=== PATIENT | female | born 1940 | race Caucasian/White ===

== ENCOUNTER 2017-08-09 09:42 | Outpatient (CLI) | payer MEDICARE ==
--- NOTE | 2017-08-09 12:08 | ULT ---
HEPATIC DOPPLER: HISTORY: Cirrhosis. COMPARISON: None. TECHNIQUE: Fleming-scale, color-flow, and Doppler imaging with spectral wave-form analysis was performed of the [facility] er. FINDINGS: In the left hepatic lobe, there is anechoic focus, measuring 4.6 x 6.1 x 6.5 cm, compatible with hepa tic cysts. No solid mass in the liver. The liver measures 17 cm. The head of the pancreas is normal in echotexture. The remainder of the pancreas is obscured. The gallbladder is surgically absent. Common bile duct diameter is 0.5 cm. The visualized aorta and IVC are unremarkable. The spleen is enlarged, measuring 13.1 cm. HEPATIC DOPPLER: There is patency and normal directional flow in the main portal vein, the right por mis vein, the left portal vein, the left hepatic vein, the middle hepatic vein, the right hepatic vei n, and the hepatic artery. There is also patency and flow in the splenic vein and artery. IMPRESSION: 1. Unremarkable hepatic Doppler. 2. Mild splenomegaly. 3. Left hepatic lobe cyst. POS: [facility]
== END 2017-08-09 09:43 | disposition home or self-care (01) ==
LOC: ULT 09:42
PROVIDERS: ATTEND Internal Medicine Gastroenterology
DX: K74.60 Unspecified cirrhosis of liver (principal); R16.1 Splenomegaly, not elsewhere classified; K76.89 Other specified diseases of liver
CPT/HCPCS: 76705

== ENCOUNTER 2018-08-22 11:03 | Inpatient (IN) | payer MEDICARE ==
[2018-08-22 11:44] LABS: #Eosinphils 0.4 thou/uL (0.0-0.7); #Lymphocytes 0.8 thou/uL (1.20-3.40); #Monocytes 0.9 thou/uL (0.11-0.59); #Neutrophils 7.4 thou/uL (1.40-6.50); %Basophils 0.4 % (0.0-1.0); %Eosinophils 4.7 % (0.0-10.0); %Lymphocytes 7.9 % (21.0-51.0); %Monocytes 9.3 % (0.0-10.0); %Neutrophils 77.7 % (42.0-75.0); Hemoglobin 9.5 g/dL (12.0-16.0); Mean Corpuscular HGB CONC 32.8 g/dL (32.0-36.0); Mean Corpuscular Hemoglobin 31.2 pg (27.0-31.0); Mean Corpuscular Volume 94.9 fL (78.0-98.0); Mean Platelet Volume 8.8 fL (7.4-10.4); Platelet Count 160 thou/uL (130-400); RBC Distribution Width 15.3 % (11.5-14.5); Red Blood Cell (RBC) Count 3.04 mill/uL (4.20-5.40); White Blood Cell (WBC) Count 9.5 thou/uL (4.8-10.8)
[2018-08-22] MEDS ORDERED: Aspirin Chewable 81 MG TAB ONE (11:57)
--- NOTE | 2018-08-22 11:57 | RAD ---
PORTABLE UPRIGHT FRONTAL CHEST RADIOGRAPH: Date: 08-22-18 Comparison: 06-01-16 History: Intermittent chest pain with cough. FINDINGS: Midline sternotomy wires and mediastinal clips are present. Dual-lead transvenous pacing device prese nt, stable. No pneumothorax, pleural fluid, focal consolidation or alveolar edema. Mild pulmonary vas cular congestion and perihilar interstitial prominence. IMPRESSION: Stable appearance of the chest. No acute findings. POS: [facility]
[2018-08-22 12:04] LABS: ALT (SGPT) 17 U/L (8-55); AST (SGOT) 17 U/L (5-34); Albumin 3.6 g/dL (3.4-4.8); Alkaline Phosphatase 61 U/L (40-150); Anion Gap 12 mmol/L (10-20); BUN (Urea Nitrogen) 16 mg/dL (9.8-20.1); Bilirubin, Total 0.6 mg/dL (0.2-1.2); Calc. Creatinine Clearance 0 mL/min (70-130); Calcium 8.3 mg/dL (7.8-10.44); Carbon Dioxide 33 mmol/L (23-31); Chloride 97 mmol/L (98-107); Estimated GFR-MDRD 54; Globulin 3.5 g/dL (2.4-3.5); Glucose 97 mg/dL (83-110); Potassium 3.5 mmol/L (3.5-5.1); Protein, Total 7.1 g/dL (6.0-8.3); Sodium 138 mmol/L (136-145)
[2018-08-22 12:25] LABS: CKMB 0.7 ng/mL (0-6.6)
[2018-08-22] MEDS ORDERED: Acetaminophen 325 MG TAB PO PRN (13:52)
[2018-08-22] MEDS ORDERED: Ondansetron PF 4 MG/2 ML Vial IVP PRN (13:52)
[2018-08-22] MEDS ORDERED: Ondansetron ODT 4 MG TAB PO PRN (13:52)
--- NOTE | 2018-08-22 14:23 | RAD ---
ABDOMEN 2 VIEWS: Date: 08/22/18 HISTORY: Abdominal pain. FINDINGS/IMPRESSION: There are postop changes of cholecystectomy. No free air or differential fluid levels are seen. The b owel gas pattern is unremarkable. There are degenerative changes in the spine. No suspicious calcific ations are noted. POS: [facility]
--- NOTE | 2018-08-22 16:58 | HP ---
PRIMARY CARE PHYSICIAN: Dr. Bernard Carmona. PRIMARY BUSINESS INTELLIGENCE ETL DEVELOPER: Dr. Orozco. CHIEF COMPLAINT: Left-sided chest pain, epigastric pain radiating to back. HISTORY OF PRESENT ILLNESS: Ms. Fry is a pleasant 77-year-old female with past medical history of hypertension, coronary artery disease status post coronary artery bypass graft, cardiomyopathy, atrial fibrillation, status post pacemaker, who had presented to [facility] with her due to left-sided chest pain that radiates to left upper gastric area and to her back. She states symptoms started about 2 weeks ago, she states prior to her symptoms, she was started on clindamycin for a sinus infection from her primary care physician. She states she had only taken a few doses prior to noticing these symptoms. She states that she had become quite bloated with burning in her abdomen and in her chest that had referred up to her throat. She states that she had stopped taking clindamycin roughly on 08/10/2018, she states that the symptoms, however, remained since this time. She denied any fever or chills, denied any headache or dizziness. She denies any shortness of breath or nausea or vomiting. She denied any weakness or tingling down her extremities. She states that she used to see a type cutter, Dr. Lozano in the past; however, has not seen him since the start of symptoms. She also states that she sees an cheese factory worker, Dr. Campos as an outpatient. During her initial workup in the emergency department, her initial troponin was found to be elevated at 0.30, recheck was found to be within normal limits at 0.014; hemoglobin was found to be low at 9.5, but this seems to be about her baseline, she was found to have a low hemoglobin back in 2015 of 9.0. She had denied any cough, but does report that her pain lasts throughout the day and is worse after meals. Chest x-ray was found to be stable with no acute findings, abdominal x-ray was also unremarkable with a normal bowel gas pattern. It was determined that she would be admitted under observation for further workup of her symptoms. REVIEW OF SYSTEMS: All other systems reviewed and are found to be negative unless mentioned in the HPI. PAST MEDICAL HISTORY: Hypertension, coronary artery disease status post coronary artery bypass graft, cardiomyopathy, atrial fibrillation which is chronic, status post pacemaker placement. PAST SURGICAL HISTORY: Pacemaker placement, appendectomy, coronary artery bypass graft, cholecystectomy, hysterectomy, right wrist surgery, thyroidectomy, left cataract removal. FAMILY HISTORY: Her father had from a myocardial infarction at age 65, otherwise, unremarkable family history. SOCIAL HISTORY: Denies any tobacco, alcohol, or illicit drug use. ALLERGIES: ERYTHROMYCIN AND PENICILLINS. CURRENT HOME MEDICATIONS: 1. Levothyroxine 125 mcg oral once daily. 2. Aspirin 81 mg oral daily. 3. Carvedilol 12.5 mg twice daily. 4. Crestor 20 mg oral daily. 5. Clonidine 0.1 mg oral as needed for blood pressure greater than 180 systolic. 6. Potassium chloride once daily. LABORATORY DATA: WBC 9.5, RBC 3.04, hemoglobin 9.5, and platelets 160. Sodium 138, potassium 3.5, carbon dioxide 33, anion gap 12, BUN 16, creatinine 0.99, estimated GFR 54, alkaline phosphatase 61. Troponin 0.030, then 0.014. DIAGNOSTIC IMAGING: Chest x-ray showed no acute findings. Abdominal x-ray was unremarkable. ASSESSMENT AND PLAN: 1. Chest pain, rule out cardiac etiology, trend troponins. Order a stress test and place consult for Cardiology, her primary veneer clipper helper is Dr. Orozco. We will also interrogate her pacemaker. This also likely could be due to gastritis from the clindamycin that she was started on roughly 2 weeks ago, we will monitor the patient's symptoms closely and start on IV Protonix twice daily, and if her symptoms continue overnight, we will also consider consultation to Gastroenterology for possible upper scope. 2. History of chronic atrial fibrillation with pacemaker in place, as above, we will check the patient's pacemaker and interrogate, continue on the patient's home medications. 3. History of hypertension, as above, continue on her home regimen. 4. Cardiomyopathy. Continue the patient's home regimen and monitor the patient closely. 5. Deep venous thrombosis and gastrointestinal prophylaxis. 6. Code status, full code. DISPOSITION: Pending cardiac workup and clinical findings. Job ID: [id number]
[2018-08-22 18:02] VITALS: BMI 20.5
[2018-08-23] MEDS ORDERED: Labetalol HCl 100 MG/20 ML VIAL SLOW IVP PRN (03:47)
--- NOTE | 2018-08-23 03:51 | PDOC.EVN ---
Event Note - Event Note Event Note: paged by rn pt was found yieling for help after she went to the restroom, possibly pt had some stroke like symptoms will do stroke protocol in am, unable to do mri due to PPM
[2018-08-23 04:49] LABS: #Basophils 0.1 thou/uL (0.0-0.2); #Eosinphils 0.6 thou/uL (0.0-0.7); #Lymphocytes 0.7 thou/uL (1.20-3.40); #Monocytes 0.7 thou/uL (0.11-0.59); #Neutrophils 7.1 thou/uL (1.40-6.50); %Basophils 0.6 % (0.0-1.0); %Eosinophils 6.4 % (0.0-10.0); %Lymphocytes 7.5 % (21.0-51.0); %Monocytes 7.6 % (0.0-10.0); %Neutrophils 77.9 % (42.0-75.0); Hemoglobin 9.8 g/dL (12.0-16.0); Mean Corpuscular HGB CONC 32.8 g/dL (32.0-36.0); Mean Corpuscular Hemoglobin 31.1 pg (27.0-31.0); Mean Corpuscular Volume 94.8 fL (78.0-98.0); Mean Platelet Volume 8.3 fL (7.4-10.4); Platelet Count 163 thou/uL (130-400); RBC Distribution Width 15.2 % (11.5-14.5); Red Blood Cell (RBC) Count 3.14 mill/uL (4.20-5.40); White Blood Cell (WBC) Count 9.1 thou/uL (4.8-10.8)
[2018-08-23 05:10] LABS: Anion Gap 13 mmol/L (10-20); BUN (Urea Nitrogen) 15 mg/dL (9.8-20.1); Calc. Creatinine Clearance 53 mL/min (70-130); Carbon Dioxide 30 mmol/L (23-31); Chloride 98 mmol/L (98-107); Estimated GFR-MDRD 66; Glucose 105 mg/dL (83-110); Potassium 3.1 mmol/L (3.5-5.1); Sodium 138 mmol/L (136-145)
[2018-08-23 05:16] LABS: Troponin I 0.016 ng/mL (< 0.028)
[2018-08-23 05:27] LABS: INR-International Normal Ratio 1.3; Prothrombin Time 16.7 SEC (12.0-14.7)
[2018-08-23] MEDS: Enoxaparin Sodium 40 MG/0.4 ML SYRINGE SC SCH (08:15)
--- NOTE | 2018-08-23 08:18 | CT ---
CTA HEAD WITH AND WITHOUT IV CONTRAST AND 3D REFORMATTED IMAGING: CTA NECK WITH IV CONTRAST AND 3D REFORMATTED IMAGING: INDICATIONS: TIA with sudden onset of weakness and right-sided facial droop with slurred speech. At the time of t he examination, the symptoms had resolved. COMPARISON: Prior noncontrast CT brain dated 04/24/2007 from [facility]. FINDINGS: HEAD: Since 2006, there has been worsening of mild chronic small vessel white matter ischemic change . The septum pellucidum and third ventricle are midline. No definite acute infarct, hemorrhage, or hydrocephalus is present. The mastoid air cells and paranasal sinuses are clear. No hemodynamically significant stenosis, occlusion, or aneurysmal formation is seen involving the collin or intracranial arteries. There is moderate calcification involving the cavernous carotid bilaterall y, that slightly limits evaluation of the luminal caliber at this level, but no definite hemodynamica lly significant stenosis is grossly evident. The MCAs, ACAs, and cisco certified network professional appear patent. The anterior c ommunicating artery and posterior cerebral artery appear patent. The visualized basilar and vertebra l arteries appear patent. No acute abnormal enhancement is demonstrated. The tanana lenses have been replaced. NECK: There are biapical ground glass opacities within both lungs. There is a pacemaker overlying t he left chest wall. There is suggestion of mild cardiomegaly. There is interstitial prominence invo lving the lung apices. There is post surgical change of prior CABG. The ascending aorta, proximal descending thoracic aorta, and aortic arch appear of normal caliber. T he great vessel origins are patent. There is some mild atherosclerotic calcification involving the o rigin of the right vertebral artery, with minimal luminal caliber narrowing. The left vertebral artis ry is widely patent. The common carotid arteries are patent. Both carotid bulbs demonstrate mild at herosclerotic calcification but appear patent. There is some mild atherosclerotic irregularity invol ving the proximal right internal carotid artery, with no hemodynamically significant stenosis. The r emaining cervical segments of the ICAs remain patent. The visualized parotid and submandibular glands appear within normal limits. The thyroid gland appea rs to be surgically absent. No pathologically enlarged lymph nodes are evident. The visualized aerodigestive tract appears within normal limits. A few shotty appearing lymph nodes are seen within the superior mediastinum. One of the largest esthela ures 8 mm, on image 74 of series 4. A few mildly prominent lymph nodes are seen within the mid media stinum. One of the largest is seen within the pretracheal region, measuring 1.2 cm. There is an add itional prevascular lymph node measuring 1 cm. A few mildly prominent hilar lymph nodes are present. There are prominent anterior marginal osteophytes involving the mid to lower cervical spine. No acut e fracture or subluxation is grossly evident. IMPRESSION: 1. No hemodynamically significant stenosis, occlusion, or aneurysmal formation demonstrated. 2. Mild atherosclerotic irregularity involving the proximal right internal carotid artery, as well a s the proximal aspect of the right vertebral artery. 3. Prominent vascular calcification involving the cavernous sinuses of the internal carotid arteries bilaterally, slightly limiting evaluation of the luminal caliber, but no definite hemodynamically si gnificant stenosis is grossly evident. 4. Nonspecific, mildly prominent lymph nodes within the mediastinum. These are slightly more promin ent than on a CT soft tissue neck dated 01/03/2013. This may be reactive in nature. Follow-up CT ex amination in 6 to 8 weeks may be helpful. 5. Bilateral air space opacities seen throughout both lungs may reflect edema or possibly an atypica l infectious process such as pneumonitis. Recommend correlation. POS: [facility]
[2018-08-23] MEDS ORDERED: Aspirin 325 mg Enteric Coated Tablet PO SCH (09:00)
--- NOTE | 2018-08-23 09:27 | EKG ---
Test Reason : Blood Pressure : / mmHG Vent. Rate : 093 BPM Atrial Rate : 093 BPM P-R Int : 000 ms QRS Dur : 086 ms QT Int : 366 ms P-R-T Axes : 000 -20 099 degrees QTc Int : 455 ms Atrial fibrillation Minimal voltage criteria for LVH, may be normal variant Anterior infarct , age undetermined Abnormal ECG Confirmed by DR. Trina WILLINGHAM ([id number]) on 08/23/2018 9:27:05 AM Referred By: ROSY Confirmed By:DR. Trina WILLINGHAM
[2018-08-23] MEDS ORDERED: ISOVUE-370 76%-LOCM 1 ML ONE (10:01)
[2018-08-23] MEDS ORDERED: ADENOSINE 60 MG/20 ML VIAL ONE (11:27)
[2018-08-23] MEDS ORDERED: Nitroglycerin 0.4 MG TAB (25 Tab Bottle) SL PRN (13:04)
[2018-08-23] MEDS ORDERED: cloNIDine 0.1 MG TAB PO PRN (13:04)
--- NOTE | 2018-08-23 13:25 | NM ---
CARDIAC SPECT: HISTORY: A 77-year-old female with chest pain, coronary artery disease, CABG, cardiomyopathy, CHF, atrial fibr illation, and hypertension. TECHNIQUE: A myocardial perfusion scan was performed using the single isotope one day protocol with technetium 9 9m sestamibi, and 10 millicuries was injected intravenously for the rest exam, followed by 33 millicu martita for the stress study. FINDINGS: There is a small fixed defect in the proximal inferolateral wall. No reversible defects are seen. GATED SPECT LVEF: 62%. WALL MOTION EXAM: Normal. IMPRESSION: No evidence of reversible ischemia. POS: [facility]
--- NOTE | 2018-08-23 16:11 | PDOC.PN ---
- Subjective Encounter Start Date: 08/23/18 Encounter Start Time: 16:06 Patient lying in bed with family at bedside. She had stroke like symptoms late last night, CT head did not show any ischemia or infarct. Stress unremarkable, awaiting echo. Neurology following and cardiology services. She denies chest pain, shortness of breath. She remains with slurred speech that is improving. - Objective Resuscitation Status - Order Detail: 08/22/18 13:52 Resuscitation Status Routine Co-Sign Provider: Resuscitation Status: FULL: Full Resuscitation MAR Reviewed: Yes Vital Signs & Weight: Vital Signs (12 hours) Temp Pulse Resp BP Pulse Ox 08/23/18 15:46 97.4 F L 75 18 149/70 H 94 L 08/23/18 12:52 98.5 F 78 16 141/76 H 98 08/23/18 07:45 97.7 F 103 H 16 158/69 H 97 08/23/18 04:24 96 20 145/78 H 94 L Weight Weight 135 lb 2 oz I&O: 08/22/18 08/23/18 08/24/18 06:59 06:59 06:59 Intake Total 445 Balance 445 Result Diagrams: 08/23/18 04:41 08/23/18 04:41 Additional Labs: Accuchecks 08/23/18 03:21 POC Glucose 126 H Radiology Reviewed by me: Yes Phys Exam - Physical Examination Constitutional: NAD HEENT: PERRLA, oral pharynx no lesions Neck: no nodes, full ROM Respiratory: no wheezing, clear to auscultation bilateral Cardiovascular: RRR, no significant murmur Gastrointestinal: soft, non-tender, positive bowel sounds Musculoskeletal: no edema, pulses present Neurological: non-focal, moves all 4 limbs Lymphatic: no nodes Psychiatric: normal affect, A&O x 3 Skin: no rash, cap refill <2 seconds Dx/Plan (1) Slurred speech Code(s): R47.81 - SLURRED SPEECH Status: Acute (2) Anemia Code(s): D64.9 - ANEMIA, UNSPECIFIED Status: Acute (3) Chest pain Code(s): R07.9 - CHEST PAIN, UNSPECIFIED Status: Acute (4) Hypertension Code(s): I10 - ESSENTIAL (PRIMARY) HYPERTENSION Status: Chronic - Plan cont current plan of care, plan discussed w/ family, speech therapy, DVT proph w /lovenox * Continue ASA 325mg increased from her normal home dose of 81mg, she did not tolerated plavix in the past * Cardiology and neurology following * Await echo * Stress test unremarkable. * Speech therapy
[2018-08-23] MEDS ORDERED: Aggrenox 200-25mg CAP PO SCH (18:00)
--- NOTE | 2018-08-23 18:39 | ULT ---
CAROTID DOPPLER ULTRASOUND EVALUATION 08/23/18 HISTORY: TIA. Multiple longitudinal and transverse images of the carotid arteries is obtained using a multihertz li near array transducer. Real time, color flow, and spectral waveform doppler analysis demonstrates min imal areas of diffuse intimal thickening and mild atherosclerotic calcified plaque in the right and l eft common and internal carotid arteries. None of these are associated with increased flow velocities or are critical. They were all minimal resulting in 10-20% areas of focal stenosis. Antegrade flow s een both vertebral arteries. IMPRESSION: Minimal bilateral distal CCA and proximal bilateral ICA calcified and noncalcified plaques. No signif icant high grade stenosis or evidence of increased flow velocities seen. POS: [facility]
[2018-08-23] MEDS: Atorvastatin Calcium 10 MG TAB PO SCH (20:42)
--- NOTE | 2018-08-23 21:06 | CON ---
DATE OF CONSULTATION: 08/23/2018 CONSULTING PHYSICIAN: Hospitalist Services. IMPRESSION: 1. Probable lacunar stroke with dysarthria and very subtle right hand weakness. 2. Hypertension. 3. Aspirin failure. PLAN: 1. Add Aggrenox one a day for 3 days, then b.i.d. 2. Carotid ultrasound. 3. Office followup. HISTORY OF PRESENT ILLNESS: Ms. Fry is a 77-year-old white female with a past history of hypertension and coronary artery disease, as well as hyperlipidemia. She came into the hospital for evaluation of chest pain. She had been treated for sinus infection with clindamycin, this resulted in a lot of secondary bloating. She then started having reflux type acid taste in the back of her mouth. The chest pain that was happening was from sternal to the back, would wax and wane in severity. She was admitted for further evaluation. She got up to go to the bathroom when all of a sudden she felt unstable. She grabbed onto the handrail to hold her balance and called for help. She subsequently was moved back to her bed. She had a CT scan of the brain and CTA done, nothing remarkable was found. Since the attack, she has had some persistent dysarthria. Her also notes that her right hand was a bit sluggish. She denies any history of stroke symptoms in the past. PAST MEDICAL HISTORY: As listed above. ALLERGIES: PENICILLIN, ERYTHROMYCIN. SOCIAL HISTORY: No tobacco or alcohol use. FAMILY HISTORY: Noncontributory. REVIEW OF SYSTEMS: 10-system review of systems is otherwise unremarkable other than the ongoing chest pain and reflux. PHYSICAL EXAMINATION: GENERAL: She is well-nourished elderly lady, in no acute distress. VITAL SIGNS: Stable. She has been afebrile. HEENT: Within normal limits. NECK: Supple. No lymphadenopathy. EXTREMITIES: No cyanosis, clubbing, or edema. NEUROLOGIC: She was alert and cooperative. Her speech was a bit dysarthric, but fluent. Cranial nerve exam showed flattening of the right nasolabial fold. Motor exam showed diminished rapid alternating movements and fix on the right with arm roll testing. Sensation was intact to touch. Gait is intact. No abnormal movements were seen. SUMMARY: This is a 77-year-old woman with some probable lacunar infarction despite aspirin and statin therapy. She has a previous history of gastrointestinal bleed on Plavix. The source of the blood was never identified. Given this, would suggest Aggrenox. Hopefully, she can tolerate it without developing a headache. I would be happy to follow up with her as an outpatient. Job ID: [id number]
--- NOTE | 2018-08-23 21:21 | CON ---
DATE OF CONSULTATION: 08/23/2018 REASON FOR CONSULTATION: Chest pain and acute CVA. PRIMARY REHABILITATION SERVICES MANAGER: Harman Orozco MD HISTORY OF PRESENT ILLNESS: Ms. Fry is a very pleasant 77-year-old white female, who comes to the hospital for chest pain. She was admitted, had a stress test earlier today, and this was negative for ischemia with an EF of about 62%. She has a history of coronary artery disease with CABG in the past. She had a last catheterization in [address] Orozco and her grafts were open. She did have some disease, that was treated medically. During her hospital stay, she developed right facial droop and slurred speech, so diagnosed with an acute CVA. On my evaluation, she continues to have slurred speech, has some difficulty pronouncing some words and has facial droop on the right side. She is quite strong on both upper and lower extremities equally. She has a history of chronic atrial fibrillation. The last time she was seen in the office was in May of 2018, at which point the note states that she was not on any Eliquis secondary to GI bleeding and she confirmed that, she told me she has bled in her stomach before. At that point, she had a discussion with her nurse practitioner about a Watchman device or possibly a Lariat, and she declined at that time. PAST MEDICAL HISTORY: 1. Chronic atrial fibrillation. 2. Coronary artery disease. 3. Status post CABG. 4. Hypertension. 5. Status post pacemaker placement. PAST SURGICAL HISTORY: 1. Pacemaker placement. 2. Appendectomy. 3. Coronary artery bypass grafting. 4. Cholecystectomy. 5. Hysterectomy. 6. Right wrist surgery. 7. Thyroidectomy. 8. Left cataract removal. OUTPATIENT MEDICATIONS: 1. Levothyroxine 125 mcg a day. 2. Aspirin 81 a day. 3. Carvedilol 12.5 mg b.i.d. 4. Crestor 20 mg a day. 5. Clonidine 0.1 p.r.n. 6. Potassium chloride. ALLERGIES: ERYTHROMYCIN AND PENICILLIN. SOCIAL HISTORY: No alcohol, tobacco or drugs. FAMILY HISTORY: AL at age 65 in her father, otherwise noncontributory. REVIEW OF SYSTEMS: A 12-point review of systems is done, is all negative unless stated in the history of present illness. PHYSICAL EXAMINATION: VITAL SIGNS: Temperature 97.4, pulse 82, respiratory rate 18, sat 97% on room air, and blood pressure 158/74. GENERAL: Awake, alert, oriented x3, in no distress. HEENT: Normocephalic and atraumatic. NECK: Supple. LUNGS: Clear. CARDIOVASCULAR: S1 and S2. No S3 or S4. No murmurs. ABDOMEN: Soft. Positive bowel sounds. EXTREMITIES: No edema. NEUROLOGICAL: Strength is conserved 5+ in both upper and lower extremities. She has significant facial droop and slurred speech. LABORATORY DATA: Laboratory work was reviewed. CBC with a white count of 9.1, hemoglobin of 9.8, hematocrit of 29, and platelet count of 163. Coags with an INR of 1.3. Chemistries, potassium is 3.1, otherwise unremarkable. Troponin is negative x3. Albumin of 3.6. DIAGNOSTIC DATA: EKG was reviewed, AFib with RVR with some paced beats. Nuclear stress SPECT showed normal EF. No evidence of reversible ischemia. Carotid Doppler was unremarkable. CT angiography is unremarkable. ASSESSMENT: 1. Chest pain: Ruled out with negative enzymes, unremarkable EKG and normal stress test. 2. Acute cerebrovascular accident. 3. Chronic atrial fibrillation. 4. History of gastrointestinal bleeding on anticoagulation. PLAN: 1. We had a conversation about Lariat device and Watchman device. She states that she may have to talk with her family members; however, after having had the stroke, she will reconsider. She would like to talk to Electrophysiology to talk a little more about these devices. We will put a consult for Dr. Hummel with [facility] as she would be a candidate for a Watchman versus a Lariat device in the future, most likely watchman as she has had a CABG in the past and her pericardium is not intact. 2. We will follow. Job ID: [id number] MTDD
[2018-08-24 06:27] LABS: #Eosinphils 0.5 thou/uL (0.0-0.7); #Monocytes 0.8 thou/uL (0.11-0.59); %Basophils 0.5 % (0.0-1.0); %Eosinophils 5.7 % (0.0-10.0); %Lymphocytes 10.9 % (21.0-51.0); %Monocytes 8.8 % (0.0-10.0); %Neutrophils 74.3 % (42.0-75.0); Hemoglobin 9.5 g/dL (12.0-16.0); Mean Corpuscular HGB CONC 32.7 g/dL (32.0-36.0); Mean Corpuscular Hemoglobin 31.1 pg (27.0-31.0); Mean Corpuscular Volume 95.3 fL (78.0-98.0); Mean Platelet Volume 8.9 fL (7.4-10.4); Platelet Count 199 thou/uL (130-400); RBC Distribution Width 15.2 % (11.5-14.5); Red Blood Cell (RBC) Count 3.05 mill/uL (4.20-5.40); White Blood Cell (WBC) Count 9.4 thou/uL (4.8-10.8)
[2018-08-24 06:45] LABS: Anion Gap 12 mmol/L (10-20); BUN (Urea Nitrogen) 9 mg/dL (9.8-20.1); Calc. Creatinine Clearance 56 mL/min (70-130); Carbon Dioxide 32 mmol/L (23-31); Cardiac Risk 4.9 (Less than 4.5); Chloride 100 mmol/L (98-107); Cholesterol 117 mg/dl (< 200 Desired); Estimated GFR-MDRD 70; Glucose 104 mg/dL (83-110); HDL Cholesterol 24 mg/dL (>60 Neg Risk); LDL Cholesterol, Calculated 75 mg/dL; Potassium 3.2 mmol/L (3.5-5.1); Sodium 141 mmol/L (136-145); Triglycerides 89 mg/dL (Less than 150)
[2018-08-24] MEDS ORDERED: Aspirin 81 mg Enteric Coated Tablet PO SCH (09:00)
[2018-08-24] MEDS ORDERED: Aspirin 325 mg Enteric Coated Tablet PO SCH (09:00)
[2018-08-24] MEDS: Enoxaparin Sodium 40 MG/0.4 ML SYRINGE SC SCH (09:11)
[2018-08-24] MEDS: Carvedilol 3.125 MG TAB PO SCH (09:12)
[2018-08-24] MEDS: Levothyroxine Sodium 125 MCG TAB PO SCH (09:12)
--- NOTE | 2018-08-24 14:25 | PDOC.PN ---
- Subjective Encounter Start Date: 08/24/18 Encounter Start Time: 14:23 Subjective: Patient lying in bed with at bedside. She reports feeling better -: Dr Hummel determined she would be good candidate for watchman, started -: Eliquis, No chest pain, sob,abdominal pain. - Objective Resuscitation Status - Order Detail: 08/22/18 13:52 Resuscitation Status Routine Co-Sign Provider: Resuscitation Status: FULL: Full Resuscitation MAR Reviewed: Yes Vital Signs & Weight: Vital Signs (12 hours) Temp Pulse Resp BP Pulse Ox 08/24/18 11:35 86 18 144/67 H 96 08/24/18 07:35 97.6 F 82 18 175/77 H 97 08/24/18 04:17 98.4 F 82 14 121/69 97 Weight Weight 135 lb 14.4 oz I&O: 08/23/18 08/24/18 08/25/18 06:59 06:59 06:59 Intake Total 445 1050 360 Output Total 1450 Balance 445 -400 360 Result Diagrams: 08/24/18 05:52 08/24/18 05:53 Radiology Reviewed by me: Yes Phys Exam - Physical Examination Constitutional: NAD HEENT: PERRLA, 2+ tonsils Neck: no nodes, full ROM Respiratory: no wheezing, clear to auscultation bilateral Cardiovascular: no significant murmur, no rub S1S2 Gastrointestinal: soft, positive bowel sounds Musculoskeletal: no edema, pulses present Neurological: moves all 4 limbs Slurred speech improved Lymphatic: no nodes Psychiatric: normal affect, A&O x 3 Skin: no rash, cap refill <2 seconds Dx/Plan (1) Slurred speech Code(s): R47.81 - SLURRED SPEECH Status: Acute (2) Anemia Code(s): D64.9 - ANEMIA, UNSPECIFIED Status: Acute (3) Chest pain Code(s): R07.9 - CHEST PAIN, UNSPECIFIED Status: Acute (4) Hypertension Code(s): I10 - ESSENTIAL (PRIMARY) HYPERTENSION Status: Chronic (5) CVA (cerebral vascular accident) Code(s): I63.9 - CEREBRAL INFARCTION, UNSPECIFIED Status: Acute - Plan cont current plan of care, plan discussed w/ family Continue Mary Beth, she will follow up with Dr Orozco and Dr Hummel along -: with Dr Maraist as outpatient. Since patient with hx of not tolerating -: Plavix, will hold discharge give dose of Eliquis and d/c tomorrow -: if no bleeding noted. * .
[2018-08-24] MEDS ORDERED: Potassium Chloride 20 MEQ TAB PO SCH (15:00)
--- NOTE | 2018-08-24 15:31 | CON ---
DATE OF CONSULTATION: 08/24/2018 REFERRING PHYSICIANS: 1. Shawn Vargas MD. 2. Harman Orozco MD. HISTORY OF PRESENT ILLNESS: I am seeing Mrs. 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 Her problems are. 1. Persistent atrial fibrillation. a.. Chronic persistent atrial fibrillation noted on pace interrogation. b. Current admission with episodes of CVA/TIA. 2. Valvular heart disease. a. 2D echo from 08/23/2018 reveals LVEF of 50% to 55%, mild MR, moderate to severe TR, pulmonary pressures at 60 mmHg. 3. History of anemia and GI bleed with current hemoglobin of 9.5. a. No history of bleeding source found. 4. Risk factors including hypertension. 5. History of bradycardia . 6. History of coronary artery disease with heart catheterization in 2016 with recent bypass graft noted, treated medically. SUBJECTIVE: Ms. Fry presented with slurred speech and diagnosed to have an acute CVA/TIA. She still has some slurring and some facial droop on the right side, though improving. She does not have any stroke-like symptoms. No neurological deficits. No fever, chills, cough. No PND or orthopnea. She denies angina-like discomfort. No new bleeding issues are noted. Rest of 12-point system otherwise unremarkable. PAST HISTORY: As above. Pt has been seen by Dr Umaña in the past,but at that point she declined Watchman procedure. SOCIAL HISTORY: The patient denies smoking, EtOH, or drug abuse. FAMILY HISTORY: Not contributory. OBJECTIVE DATA: VITAL SIGNS: Blood pressure 144/67, heart rate 86, respiratory rate 18, temperature 96.7 degrees Fahrenheit. GENERAL: This is an alert and oriented woman, in no apparent distress. NECK: Supple. Jugular veins not distended. CHEST: Coarse with crackles. HEART: Sounds are irregularly irregular. S1 and S2 are variable. No murmur or gallop. Left subclavian pacemaker incision site is well healed. ABDOMEN: Benign. Bowel sounds positive. No masses or hepatomegaly is felt. EXTREMITIES: Lower extremities without edema, clubbing, mild swelling. No cyanosis. NEUROLOGIC: The patient is nonfocal at this point with minimal slurring of speech only. SKIN: Without rash. DATABASE: EKG is reviewed with atrial fibrillation, narrow QRS. Interrogation of pacemaker reveals persistent atrial fibrillation and intermittent ventricular pacing at times. Adequate pacemaker fuinction and battery status noted. LABORATORY DATA: White cells 9.4, hemoglobin 9.5 stable, platelet count is 199. The INR is 1.3 on the 5th. Sodium 141, potassium 3.2, BUN and creatinine is 9 and 0.79. The troponin was 0.014, 0.025. 0.016. The 2D echo as noted above. Pacemaker interrogation is also reviewed. Stress test from 08/23/2018 shows no evidence of reversible ischemia. EF 62%. ASSESSMENT AND PLAN: Ms. Fry is a pleasant 77-year-old woman with prior history of persistent atrial fibrillation, which is fairly asymptomatic for her. On the other hand, she did have history of significant anemia, requiring transfusions in the past, which eventually resolved and stopping oral anticoagulation. Despite that, she did not have a stroke up until now. Unfortunately, this episode seems to be self-limiting and symptoms are improving. We discussed pros and cons about considering receiving anticoagulation, possibly with the hope of Watchman procedure subsequently. I have advocated somewhat lower dose of the Eliquis and she has had borderline weight at 135 with normal renal function currently. Hopefully with this, she will have significant bleeding episodes, and will be able to go through our Watchman procedure, which would be indicated. The pros and cons of this approach were discussed. We also discussed remote options of LARIAT procedure, though which is a much more involved procedure with discomfort for the patient as well. She understands and wishes to proceed. If it is okay with Neurology, I would like to start Eliquis and will hold off on Aggrenox and aspirin instead. Hence, CT shows no significant ischemic stroke, we will initiate OAC if Neurology agrees. Job ID: [id number] [facility]
--- NOTE | 2018-08-24 17:36 | PDOC.CTH ---
Cardiology Progress Note - Subjective No new issues. No new complaints. - Objective Vital Signs Temp Pulse Resp BP Pulse Ox 08/24/18 15:30 98.3 F 82 12 176/80 H 98 08/24/18 11:35 86 18 144/67 H 96 08/24/18 07:35 97.6 F 82 18 175/77 H 97 Weight 135 lb 14.4 oz 08/23/18 08/24/18 08/25/18 06:59 06:59 06:59 Intake Total 445 1050 600 Output Total 1450 Balance 445 -400 600 - Physical Examination General/Neuro: alert & oriented x3, NAD Neck: no JVD present Lungs: unlabored respirations Heart: other: (Irreg irreg) Abdomen: NT/ND Extremities: other: (no edema) - Telemetry Telemetry Rhythm: Afib HR 80's. - Labs Result Diagrams: 08/24/18 05:52 08/24/18 05:53 Troponin/CKMB CK-MB (CK-2) 0.7 ng/mL (0-6.6) 08/22/18 11:29 Troponin I 0.016 ng/mL (< 0.028) 08/23/18 04:41 - Assessment/Plan 1. Acute CVA 2. Normal stress test. 3. Chronic afib 4. Hx of GI bleeding. 5. S/P CABG in the past. PLAN: - She would only be a candidate for a Watchman as she has had a CABG so Lariat unlikely. - Agree with re challenge of lower dose Eliquis and set up for watchman in the future.
[2018-08-24] MEDS: Apixaban 2.5 MG TAB PO SCH (22:14)
[2018-08-24] MEDS: Atorvastatin Calcium 10 MG TAB PO SCH (22:14)
[2018-08-24] MEDS ORDERED: Melatonin 3 MG TAB PO PRN (22:32)
[2018-08-25 05:49] LABS: #Eosinphils 0.7 thou/uL (0.0-0.7); #Lymphocytes 1.1 thou/uL (1.20-3.40); #Monocytes 0.9 thou/uL (0.11-0.59); %Basophils 0.2 % (0.0-1.0); %Lymphocytes 10.9 % (21.0-51.0); %Monocytes 9.6 % (0.0-10.0); %Neutrophils 72.3 % (42.0-75.0); Mean Corpuscular HGB CONC 33.2 g/dL (32.0-36.0); Mean Corpuscular Hemoglobin 31.5 pg (27.0-31.0); Mean Corpuscular Volume 94.9 fL (78.0-98.0); Mean Platelet Volume 8.5 fL (7.4-10.4); Platelet Count 190 thou/uL (130-400); RBC Distribution Width 15.1 % (11.5-14.5); Red Blood Cell (RBC) Count 2.86 mill/uL (4.20-5.40); White Blood Cell (WBC) Count 9.7 thou/uL (4.8-10.8)
[2018-08-25 07:36] VITALS: BP 145/63; TEMP 97.5
[2018-08-25] MEDS: Levothyroxine Sodium 125 MCG TAB PO SCH (08:54)
[2018-08-25] MEDS: Carvedilol 3.125 MG TAB PO SCH (08:58)
[2018-08-25] MEDS: Apixaban 2.5 MG TAB PO SCH (08:58)
--- NOTE | 2018-08-26 04:08 | PRG ---
DATE OF SERVICE: 08/25/2018 ELECTROPHYSIOLOGY FOLLOWUP NOTE SUBJECTIVE: Mrs. Fry seems to be doing well, tolerated resumed Eliquis. OBJECTIVE DATA: VITAL SIGNS: Blood pressure is 145/63, heart rate 70, respiratory rate 16, and temperature 97.5 degrees Fahrenheit. PHYSICAL EXAMINATION: GENERAL: Alert and oriented woman, in no apparent distress. NECK: Supple. Jugular veins not distended. CHEST: Coarse with crackles. HEART: Sounds are irregularly irregular. S1 and S2 are variable. No murmur or gallop. PMI is nonpalpable. ABDOMEN: Benign. Bowel sounds positive. EXTREMITIES: Lower extremities without edema, clubbing, or cyanosis. DATABASE: The telemetry strips reviewed revealing continued atrial fibrillation. LABORATORY DATA: White cell count 9.7, hemoglobin 9, platelet count is 190. Sodium 141, potassium 3.2, BUN 9, creatinine 0.79. ASSESSMENT AND PLAN: Mrs. Fry is a pleasant 77-year-old woman who has history of persistent atrial fibrillation. She had also some bradyarrhythmia and the pacemaker is in place. She was admitted with acute transient ischemic attack. Most symptoms resolved. CT head was nonspecific for stroke. We discussed the potential options for Watchman procedure for her. That would require anticoagulation. She had remote history of GI bleed, but no specific source was found, and no recurrence since then. At this point, we resumed Eliquis and I advised her to continue home monitoring. We will see her back in the near future for arranging the Watchman device placement. Job ID: [id number]
[2018-08-26] MEDS ORDERED: Aggrenox 200-25mg CAP PO SCH (09:00)
== END 2018-08-25 11:07 | disposition home or self-care (01) | DRG 65 ==
LOC: ERS 11:03 → ERHOLD 12:56 → 2SW 17:56 → OBSVTOIN 08-24 14:22 → 2SE 08-24 20:14
PROVIDERS: ADMIT Family Medicine; ATTEND Family Medicine
DX: I63.9 Cerebral infarction, unspecified (principal); I42.9 Cardiomyopathy, unspecified; I10 Essential (primary) hypertension; I25.10 Atherosclerotic heart disease of native coronary artery without angina pectoris; I48.2 Chronic atrial fibrillation; R47.81 Slurred speech; D64.9 Anemia, unspecified; R07.9 Chest pain, unspecified; R29.810 Facial weakness; Z87.19 Personal history of other diseases of the digestive system; Z95.1 Presence of aortocoronary bypass graft; Z90.49 Acquired absence of other specified parts of digestive tract; Z90.710 Acquired absence of both cervix and uterus; Z98.42 Cataract extraction status, left eye; Z90.89 Acquired absence of other organs; Z98.890 Other specified postprocedural states; Z79.82 Long term (current) use of aspirin; Z79.899 Other long term (current) drug therapy; Z88.0 Allergy status to penicillin; Z88.1 Allergy status to other antibiotic agents
CPT/HCPCS: 36415; 36416; 70496; 70498; 71045; 74019; 78452; 80048; 80053; 80061; 82553; 83735; 84484; 85025; 85610; 85730; 93005; 93010; 93017; 93306; 93880; A9500; J0153; J1650; J2405; Q9966

== ENCOUNTER 2019-01-18 11:33 | Outpatient (CLI) | payer MEDICARE ==
[2019-01-18 11:57] LABS: Mean Corpuscular HGB CONC 32.8 g/dL (32.0-36.0); Mean Corpuscular Volume 88.5 fL (78.0-98.0); Mean Platelet Volume 9.7 fL (7.4-10.4); Platelet Count 149 thou/uL (130-400); RBC Distribution Width 15.7 % (11.5-14.5); Red Blood Cell (RBC) Count 3.79 mill/uL (4.20-5.40)
[2019-01-18 12:13] LABS: INR-International Normal Ratio 1.4; PTT 31.3 SEC (22.9-36.1); Prothrombin Time 16.9 SEC (12.0-14.7)
[2019-01-18 12:14] LABS: Anion Gap 13 mmol/L (10-20); BUN (Urea Nitrogen) 23 mg/dL (9.8-20.1); Calc. Creatinine Clearance 0 mL/min (70-130); Calcium 8.2 mg/dL (7.8-10.44); Carbon Dioxide 29 mmol/L (23-31); Chloride 101 mmol/L (98-107); Estimated GFR-MDRD 54; Glucose 95 mg/dL (83-110); Potassium 3.9 mmol/L (3.5-5.1); Sodium 139 mmol/L (136-145)
== END 2019-01-18 11:34 | disposition home or self-care (01) ==
LOC: LABBT 11:33
PROVIDERS: ATTEND Internal Medicine Cardiovascular Disease
DX: Z01.818 Encounter for other preprocedural examination (principal); I48.91 Unspecified atrial fibrillation; Z86.73 Personal history of transient ischemic attack (TIA), and cerebral infarction without residual deficits
CPT/HCPCS: 80048; 85027; 85610; 85730; 93005; 93010

== ENCOUNTER → 2019-01-20 | Day surgery (SDC) | payer MEDICARE ==
[2019-01-18 11:49] VITALS: BMI 23.3
[~2019-01-20] MED LIST: PROPOFOL 0 ML ONE; PROPOFOL 20 ML ONE; PROPOFOL 200 MG/20 ML VIAL ONE
--- NOTE | 2019-01-20 12:49 | DIS ---
DATE OF ADMISSION: 01/20/2019 DATE OF DISCHARGE: 01/20/2019 ADMISSION DIAGNOSES: She was seen in the outpatient facility today to undergo a transesophageal echocardiogram to rule out evidence of isidro-device leak for Watchman device, which had been implanted about 6 to 8 weeks ago. Her other diagnoses included hypertension, diabetes, hypercholesterolemia, pacemaker insertion, history of gastrointestinal bleeding, and also history of cerebrovascular accident. DISCHARGE DIAGNOSES: She was seen in the outpatient facility today to undergo a transesophageal echocardiogram to rule out evidence of isidro-device leak for Watchman device, which had been implanted about 6 to 8 weeks ago. Her other diagnoses included hypertension, diabetes, hypercholesterolemia, pacemaker insertion, history of gastrointestinal bleeding, and also history of cerebrovascular accident. PROCEDURE IN HOSPITAL: Included transesophageal echocardiogram. HOSPITAL COURSE: This is an 78-year-old female, who has had a history of atrial fibrillation, who developed a GI bleed, also had a CVA previously, had undergone a Watchman device implant, and she is being evaluated today to determine whether or not she can come off the oral anticoagulation due to her problems with Coumadin. She has had spontaneous bleeding with Coumadin. Also, to consider whether or not we can even stop her anticoagulation due to her history of CVA. I am uncertain that at the time of CVA whether she was actually in atrial fibrillation at that time or not. She was taken to the recovery area, where she underwent the procedure today. There were no difficulties or complications encountered, and there was no evidence of any isidro-device leak, and the left ventricular systolic function was normal. She did have severe tricuspid valve regurgitation and moderate mitral valve regurgitation. DISCHARGE MEDICATIONS: Include: 1. Eliquis 2.5 mg b.i.d. She will discuss this with industrial welder, and they may stop this medication. 2. Calcium with vitamin D. 3. Coreg 12.5 mg twice a day. 4. Clonidine 0.1 mg daily. 5. CoQ10. 6. Levothyroxine. 7. Multivitamins. 8. Nitroglycerin p.r.n. 9. Pravastatin 20 mg q.p.m. 10. Ranitidine. 11. Torsemide. FOLLOWUP: Her followup will be with Dr. Orozco in the next 1 to 2 months. She will continue her routine followups with industrial welder. They will make the final decision as to whether or not she can stop her anticoagulation. She has had a CVA in the past, so that if she has a significant GI blood loss, then obviously, the hope is that Watchman will serve her well, which may be able to stop her oral anticoagulation. There were no complications or difficulties during this procedure, and she remained stable. She will be discharged to home in the next 2 to 3 hours. Job ID: [id number]
--- NOTE | 2019-01-20 18:41 | ECHO ---
DATE OF PROCEDURE: 01/20/19 INDICATION FOR PROCEDURE: This is an 78-year-old female who has undergone a Watchman device due to chronic atrial fibrillation. She has history of CVA, history of coronary artery disease, bypass surgery, history of pacemaker ins ertion, history of GI bleeding. She underwent a Watchman device in hopes that she could possibly get off the oral anticoagulation. She has had this for six to eight weeks now. She was advised to undergo a transesophageal echocardiogram for evaluation of the device and to rule out any peridevice leak. She was taken to the recovery area where she underwent short acting propofol without any difficulties . The transesophageal probe was passed down the distal esophagus. IMPRESSION: 1. No evidence for leakage around the Watchman device in the left atrial appendage. It appears t o be well seated. 2. Normal left ventricular systolic function. 3. Severe tricuspid valve regurgitation. 4. Moderate mitral valve regurgitation. There were no difficulties or complications encountered. The patient tolerated the procedure well.
== END ==
LOC: CCL 07:01
PROVIDERS: ATTEND Internal Medicine Cardiovascular Disease
PROC: B246ZZ4 Ultrasonography of Right and Left Heart, Transesophageal (ICD-10-PCS; principal; 2019-01-20)
DX: Z45.09 Encounter for adjustment and management of other cardiac device (principal); I48.2 Chronic atrial fibrillation; I08.1 Rheumatic disorders of both mitral and tricuspid valves; E87.6 Hypokalemia; D50.0 Iron deficiency anemia secondary to blood loss (chronic); R00.1 Bradycardia, unspecified; I25.10 Atherosclerotic heart disease of native coronary artery without angina pectoris; I10 Essential (primary) hypertension; E11.9 Type 2 diabetes mellitus without complications; E78.00 Pure hypercholesterolemia, unspecified; Z86.73 Personal history of transient ischemic attack (TIA), and cerebral infarction without residual deficits; Z87.19 Personal history of other diseases of the digestive system; Z88.0 Allergy status to penicillin; Z88.1 Allergy status to other antibiotic agents; Z79.01 Long term (current) use of anticoagulants; Z79.899 Other long term (current) drug therapy
CPT/HCPCS: 93312; J2704

== ENCOUNTER 2019-04-24 06:45 | Day surgery (SDC) | payer MEDICARE ==
[2019-04-21 16:07] VITALS: BMI 23.8
[2019-04-24 07:57] LABS: #Eosinphils 0.3 thou/uL (0.0-0.7); #Lymphocytes 0.7 thou/uL (1.20-3.40); #Monocytes 0.7 thou/uL (0.11-0.59); #Neutrophils 6.3 thou/uL (1.40-6.50); %Basophils 0.6 % (0.0-1.0); %Eosinophils 3.6 % (0.0-10.0); %Lymphocytes 9.1 % (21.0-51.0); %Monocytes 8.8 % (0.0-10.0); %Neutrophils 77.9 % (42.0-75.0); Hemoglobin 10.6 g/dL (12.0-16.0); Mean Corpuscular HGB CONC 33.3 g/dL (32.0-36.0); Mean Corpuscular Hemoglobin 30.7 pg (27.0-31.0); Mean Corpuscular Volume 92.3 fL (78.0-98.0); Mean Platelet Volume 9.2 fL (7.4-10.4); Platelet Count 155 thou/uL (130-400); RBC Distribution Width 16.1 % (11.5-14.5); Red Blood Cell (RBC) Count 3.44 mill/uL (4.20-5.40); White Blood Cell (WBC) Count 8.1 thou/uL (4.8-10.8)
[2019-04-24 08:11] LABS: INR-International Normal Ratio 1.8; PTT 37.2 SEC (22.9-36.1); Prothrombin Time 20.4 SEC (12.0-14.7)
[2019-04-24 08:15] LABS: Anion Gap 12 mmol/L (10-20); BUN (Urea Nitrogen) 21 mg/dL (9.8-20.1); Calc. Creatinine Clearance 45 mL/min (70-130); Calcium 8.1 mg/dL (7.8-10.44); Carbon Dioxide 29 mmol/L (23-31); Chloride 105 mmol/L (98-107); Estimated GFR-MDRD 54; Glucose 111 mg/dL (83-110); Potassium 3.4 mmol/L (3.5-5.1); Sodium 143 mmol/L (136-145)
[2019-04-24] MEDS ORDERED: PROPOFOL 20 ML ONE (08:55)
--- NOTE | 2019-04-24 12:23 | OP ---
DATE OF PROCEDURE: 04/24/2019 PROCEDURE PERFORMED: Transesophageal echocardiogram. INDICATION: An 78-year-old woman with paroxysmal atrial fibrillation. DESCRIPTION OF PROCEDURE: The patient was taken to the PACU. The patient was sedated by Anesthesiology. Transesophageal probe was placed to the distal esophagus and stomach. Echocardiograms were obtained. The transesophageal probe was removed. FINDINGS: 1. Normal left ventricular systolic function. 2. Moderate mitral regurgitation. 3. Severe tricuspid regurgitation. 4. Watchman device was well positioned in the left atrial appendage. There was no apparent leak noted. 5. Pacemaker wire in the right ventricle. 6. Atherosclerotic debris in the descending aorta. IMPRESSION: Watchman device is well positioned in the left atrial appendage with no evidence of significant leak. Job ID: [id number]
[2019-04-24] MEDS ORDERED: PROPOFOL 200 MG/20 ML VIAL ONE (12:38)
== END 2019-04-24 10:33 | disposition home or self-care (01) ==
LOC: CCL 06:45
PROVIDERS: ATTEND Internal Medicine Cardiovascular Disease
PROC: B24BZZ4 Ultrasonography of Heart with Aorta, Transesophageal (ICD-10-PCS; principal; 2019-04-24)
DX: I48.0 Paroxysmal atrial fibrillation (principal); I08.1 Rheumatic disorders of both mitral and tricuspid valves; Z79.01 Long term (current) use of anticoagulants; Z88.0 Allergy status to penicillin; Z88.1 Allergy status to other antibiotic agents
CPT/HCPCS: 36415; 80048; 85025; 85610; 85730; 93005; 93010; 93312; J2704

== ENCOUNTER 2019-05-04 10:12 | Outpatient (CLI) | payer MEDICARE ==
--- NOTE | 2019-05-04 12:11 | CT ---
CLINICAL HISTORY: Urinary tract infection and hepatitis. Liver cyst.. TECHNIQUE: Multiple contiguous axial images were obtained and a CT of the abdomen and pelvis without and with IV contrast. Postcontrast images were obtained in the arterial, portal venous, and delayed phases. Coronal and sagittal reformats were performed. COMPARISON: None. FINDINGS: Liver: Size: Normal. Contour: Smooth. Mass: Stable cysts measuring up to 5.2 cm in size. Gallbladder and biliary system: Removed. Spleen: Normal. Pancreas: Normal. Kidneys: Stable bilateral subcentimeter hypodensities likely represent cysts. No renal calcifications or hydronephrosis. Ureters: No filling defects or enlargement Bladder: Unremarkable. Adrenal glands: Normal. GI tract: Normal. Reproductive organs: Status post hysterectomy Peritoneum/retroperitoneum: Normal. No ascites. No adenopathy. Atherosclerotic calcifications. Body wall and musculoskeletal: Degenerative changes in the spine. Visualized lower thorax: Normal. No pulmonary parenchymal mass or pleural effusion. IMPRESSION: 1. Stable hepatic cysts 2. Likely small bilateral renal cysts.
== END 2019-05-04 10:13 | disposition home or self-care (01) ==
LOC: BICCT 10:12
PROVIDERS: ATTEND Family Medicine
DX: N39.0 Urinary tract infection, site not specified (principal); K76.89 Other specified diseases of liver
CPT/HCPCS: 74178

== ENCOUNTER 2020-06-05 09:02 | Outpatient (CLI) | payer MEDICARE ==
--- NOTE | 2020-06-05 09:49 | ULT ---
Exam: Hepatic Doppler COMPARISON: 03/30/2018 HISTORY: Cirrhosis. TECHNIQUE: Grayscale, color flow, Doppler imaging and spectral waveform analysis of the liver is perf ormed FINDINGS: The head and proximal pancreas have a normal echotexture Normal hepatic parenchymal echotexture. No hepatic masses or intrahepatic biliary dilatation. There i s a 6.1 x 4.1 x 6.1 cm anechoic focus in the left hepatic lobe, compatible with a hepatic cyst. Gallbladder is surgically absent. Visualized IVC has a normal caliber Common bile duct diameter is 0.6 cm Spleen has a normal echotexture, measuring 13.9 cm Hepatic Doppler: There is patency and appropriate directional flow in the hepatic artery, left portal vein, main portal vein, right portal vein, left hepatic vein, middle hepatic vein and right hepatic vein. There is patency and appropriate directional flow in the splenic artery and vein. IMPRESSION: 1. Normal hepatic Doppler 2. Hepatic cyst. 3. Splenomegaly
== END 2020-06-05 09:03 | disposition home or self-care (01) ==
LOC: BICULT 09:02
PROVIDERS: ATTEND Physician Assistant Medical
DX: K74.69 Other cirrhosis of liver (principal); D50.9 Iron deficiency anemia, unspecified; K76.89 Other specified diseases of liver; R16.1 Splenomegaly, not elsewhere classified
CPT/HCPCS: 76705

== ENCOUNTER 2021-07-25 08:54 | Outpatient (CLI) | payer MEDICARE ==
[2021-07-25 11:35] LABS: #Eosinphils 0.3 10x3/uL (0.0-0.5); #Monocytes 0.7 10x3/uL (0.0-1.1); #Neutrophils 7.6 10x3/uL (1.5-8.4); %Basophils 0.2 % (0.0-2.0); %Eosinophils 2.7 % (0.0-6.0); %Lymphocytes 6.1 % (18.0-47.0); %Monocytes 8.1 % (0.0-10.0); %Neutrophils 82.5 % (40.0-75.0); Hemoglobin 8.4 g/dL (12.0-15.5); Mean Corpuscular Hemoglobin 30.1 pg (27.0-33.0); Mean Corpuscular Volume 100.4 fl (81.6-98.3); Mean Platelet Volume 12.4 fl (7.4-10.4); Platelet Count 149 10x3/uL (150-450); RBC Distribution Width 14.8 % (11.5-14.5); Red Blood Cell (RBC) Count 2.79 10x6/uL (3.90-5.03); White Blood Cell (WBC) Count 9.2 10x3/uL (3.5-10.5)
[2021-07-25 11:58] LABS: Anion Gap 13 mmol/L (10-20); BUN (Urea Nitrogen) 38 mg/dL (9.8-20.1); Calc. Creatinine Clearance 0 mL/min (70-130); Calcium 8.1 mg/dL (7.8-10.44); Carbon Dioxide 28 mmol/L (23-31); Chloride 106 mmol/L (98-107); Glucose 81 mg/dL (83-110); Potassium 4.4 mmol/L (3.5-5.1); Sodium 143 mmol/L (136-145)
[2021-07-25 20:42] LABS: SARS-CoV-2 PCR by NAA Not Detected (NotDetected)
== END 2021-07-25 08:55 | disposition home or self-care (01) ==
LOC: LABBT 08:54
PROVIDERS: ATTEND Internal Medicine Cardiovascular Disease
DX: Z01.812 Encounter for preprocedural laboratory examination (principal); Z20.822 Contact with and (suspected) exposure to COVID-19
CPT/HCPCS: 80048; 85025; U0003; U0005

== ENCOUNTER 2021-07-30 05:56 | Inpatient (IN) | payer MEDICARE ==
[2021-07-24 10:36] VITALS: BMI 21.6
[2021-07-30] MEDS ORDERED: Fentanyl 100 MCG/2 ML VIAL ONE (07:20)
[2021-07-30] MEDS ORDERED: Midazolam HCl 2 mg/2 ml Vial ONE ×2 (07:20→16:00)
[2021-07-30] MEDS ORDERED: Heparin 10,000 UNITS/ 10 ML VIAL ONE ×2 (08:10→09:31)
[2021-07-30] MEDS ORDERED: Clopidogrel Bisulfate 300 MG TAB ONE (09:42)
[2021-07-30] MEDS ORDERED: Iopamidol 370 76% 100 ML VIAL ONE (10:50)
[2021-07-30] MEDS ORDERED: Digoxin 0.5 MG/2 ML AMP ONE (16:02)
[2021-07-30] MEDS ORDERED: Furosemide 20 MG/2 ML VIAL ONE ×2 (16:02→16:23)
[2021-07-30] MEDS ORDERED: Albuterol Sulfate 1.25 MG/3 ML NEB ONE (16:19)
[2021-07-30] MEDS ORDERED: Nitroglycerin 2% Ointment 1 INCH/1 GM Packet ONE (16:23)
[2021-07-30] MEDS ORDERED: Nitroglycerin 0.4 MG TAB (25 Tab Bottle) SL PRN (18:50)
[2021-07-30] MEDS ORDERED: hydrOXYzine 10 MG TAB PO PRN (18:52)
[2021-07-30] MEDS ORDERED: cloNIDine 0.1 MG TAB PO PRN (18:55)
[2021-07-30] MEDS ORDERED: Furosemide 20 MG/2 ML VIAL SLOW IVP SCH (20:15)
[2021-07-30] MEDS ORDERED: Potassium Chloride 20 MEQ TAB PO SCH (20:15)
[2021-07-30] MEDS ORDERED: Digoxin 0.5 MG/2 ML AMP SLOW IVP SCH (20:15)
[2021-07-30] MEDS ORDERED: ALPRAZolam 0.25 MG TAB PO PRN (20:16)
[2021-07-30] MEDS ORDERED: Simvastatin 10 MG TAB PO SCH (21:00)
[2021-07-31] MEDS ORDERED: Levothyroxine Sodium 125 MCG TAB PO SCH (06:00)
[2021-07-31 08:34] VITALS: BP 128/60; TEMP 98
[2021-07-31] MEDS ORDERED: Clopidogrel Bisulfate 75 MG TAB PO SCH (09:00)
[2021-07-31] MEDS ORDERED: Carvedilol 6.25 MG TAB PO SCH (09:00)
[2021-07-31] MEDS ORDERED: Potassium Chloride 20 MEQ TAB PO SCH (09:00)
[2021-07-31] MEDS ORDERED: Aspirin 81 mg Enteric Coated Tablet PO SCH (09:00)
[2021-07-31] MEDS ORDERED: Multivit, Therapeutic 1 TAB PO SCH (09:00)
[2021-07-31] MEDS ORDERED: Torsemide 20 MG TAB PO SCH (09:00)
[2021-07-31] MEDS ORDERED: Empagliflozin 10 MG TAB PO SCH (09:00)
[2021-08-01] MEDS ORDERED: Digoxin 0.125 MG TAB PO SCH (09:00)
== END 2021-07-31 12:16 | disposition home or self-care (01) | DRG 232 ==
LOC: CCL 05:56 → NEURO 19:19
PROVIDERS: ADMIT Internal Medicine Cardiovascular Disease; ATTEND Internal Medicine Cardiovascular Disease
PROC: 02100Z9 Bypass Coronary Artery, One Artery from Left Internal Mammary, Open Approach (ICD-10-PCS; principal; 2021-07-30)
PROC: 027034Z Dilation of Coronary Artery, One Artery with Drug-eluting Intraluminal Device, Percutaneous Approach (ICD-10-PCS; 2021-07-30)
PROC: 021009W Bypass Coronary Artery, One Artery from Aorta with Autologous Venous Tissue, Open Approach (ICD-10-PCS; 2021-07-30)
PROC: 5A1221Z Performance of Cardiac Output, Continuous (ICD-10-PCS; 2021-07-30)
DX: I25.10 Atherosclerotic heart disease of native coronary artery without angina pectoris (principal); I50.32 Chronic diastolic (congestive) heart failure; Z20.822 Contact with and (suspected) exposure to COVID-19; E78.00 Pure hypercholesterolemia, unspecified; I48.0 Paroxysmal atrial fibrillation; I49.5 Sick sinus syndrome; D50.9 Iron deficiency anemia, unspecified; Z95.0 Presence of cardiac pacemaker; I69.30 Unspecified sequelae of cerebral infarction; Z79.84 Long term (current) use of oral hypoglycemic drugs; Z79.82 Long term (current) use of aspirin; Z79.890 Hormone replacement therapy; Z85.850 Personal history of malignant neoplasm of thyroid
CPT/HCPCS: 85347; 92938; 93005; 93010; 93455; 99152; 99153; C1725; C1769; C1874; C9605; J1160; J1644; J1940; J2250; J3010; Q9967

== ENCOUNTER 2021-08-01 15:05 | Inpatient (IN) | payer MEDICARE ==
[2021-08-01 15:51] LABS: #Eosinphils 0.2 thou/uL (0.0-0.7); #Lymphocytes 1.1 thou/uL (1.20-3.40); #Monocytes 0.9 thou/uL (0.11-0.59); #Neutrophils 10.3 thou/uL (1.40-6.50); %Basophils 0.2 % (0.0-1.0); %Eosinophils 1.6 % (0.0-10.0); %Lymphocytes 8.7 % (21.0-51.0); %Monocytes 7.2 % (0.0-10.0); %Neutrophils 82.4 % (42.0-75.0); Mean Corpuscular HGB CONC 32.6 g/dL (32.0-36.0); Mean Corpuscular Hemoglobin 31.4 pg (27.0-31.0); Mean Corpuscular Volume 96.3 fL (78.0-98.0); Mean Platelet Volume 9.5 fL (7.4-10.4); Platelet Count 158 thou/uL (130-400); RBC Distribution Width 13.8 % (11.5-14.5); Red Blood Cell (RBC) Count 2.22 mill/uL (4.20-5.40); White Blood Cell (WBC) Count 12.4 thou/uL (4.8-10.8)
[2021-08-01 16:18] LABS: ALT (SGPT) 21 U/L (8-55); AST (SGOT) 29 U/L (5-34); Albumin 3.7 g/dL (3.4-4.8); Alkaline Phosphatase 54 U/L (40-110); Anion Gap 17 mmol/L (10-20); BUN (Urea Nitrogen) 62 mg/dL (9.8-20.1); Bilirubin, Total 0.6 mg/dL (0.2-1.2); Calc. Creatinine Clearance 0 mL/min (70-130); Calcium 8.3 mg/dL (7.8-10.44); Carbon Dioxide 20 mmol/L (23-31); Chloride 108 mmol/L (98-107); Globulin 2.6 g/dL (2.4-3.5); Glucose 128 mg/dL (83-110); Potassium 3.8 mmol/L (3.5-5.1); Protein, Total 6.3 g/dL (5.8-8.1); Sodium 141 mmol/L (136-145)
[2021-08-01] MEDS ORDERED: Ondansetron PF 4 MG/2 ML Vial IVP PRN (20:30)
[2021-08-01] MEDS ORDERED: Sodium Chloride 0.9% 1,000 ML IV SCH (20:30)
[2021-08-01] MEDS ORDERED: Ondansetron ODT 4 MG TAB SL PRN (20:30)
[2021-08-01 20:41] LABS: CKMB 15.2 ng/mL (0-6.6)
[2021-08-01] MEDS ORDERED: Pantoprazole 80 MG, Admixture Fee 1 EACH in Sodium Chloride 0.9% 100 ML IVPB SCH (21:00)
[2021-08-01] MEDS ORDERED: Aspirin Chewable 81 MG TAB ONE ×2 (21:45)
[2021-08-01] MEDS ORDERED: Pantoprazole 40 MG VIAL ONE (21:46)
[2021-08-01 22:44] LABS: #Eosinphils 0.3 thou/uL (0.0-0.7); #Lymphocytes 1.1 thou/uL (1.20-3.40); #Monocytes 1.2 thou/uL (0.11-0.59); #Neutrophils 9.8 thou/uL (1.40-6.50); %Basophils 0.3 % (0.0-1.0); %Eosinophils 2.2 % (0.0-10.0); %Lymphocytes 8.8 % (21.0-51.0); %Neutrophils 78.7 % (42.0-75.0); Hemoglobin 7.2 g/dL (12.0-16.0); Mean Corpuscular HGB CONC 33.3 g/dL (32.0-36.0); Mean Corpuscular Volume 96.1 fL (78.0-98.0); Mean Platelet Volume 9.6 fL (7.4-10.4); Platelet Count 155 thou/uL (130-400); RBC Distribution Width 13.5 % (11.5-14.5); Red Blood Cell (RBC) Count 2.25 mill/uL (4.20-5.40); White Blood Cell (WBC) Count 12.4 thou/uL (4.8-10.8)
[2021-08-01 23:51] LABS: Reticulocyte Count 4.8 % (0.5-1.5)
[2021-08-02 00:11] LABS: Iron 62 ug/dL (50-170); Iron Binding Capacity, Total 324 mcg/dL (265-497)
[2021-08-02] MEDS ORDERED: Acetaminophen 325 MG TAB PO PRN (00:19)
[2021-08-02] MEDS ORDERED: hydrALAZINE 20 MG/ML VIAL SLOW IVP PRN (00:19)
[2021-08-02] MEDS ORDERED: HumaLOG 300 UNITS/3 ML VIAL SC PRN (00:19)
[2021-08-02] MEDS ORDERED: GUAIFENESIN SF SOLN 200 MG/10 ML UDCUP PO PRN (00:19)
[2021-08-02] MEDS ORDERED: Dextrose 50% Abboject 50 ML SYRINGE SLOW IVP PRN (00:21)
[2021-08-02] MEDS ORDERED: Dextrose 5% in Water 1,000 ML IV PRN (00:21)
[2021-08-02 00:31] LABS: Troponin I 2.425 ng/mL (< 0.028)
[2021-08-02 00:39] LABS: Hemoglobin 7.3 g/dL (12.0-16.0)
[2021-08-02 00:51] LABS: Iron 64 ug/dL (50-170); Iron Binding Capacity, Total 333 mcg/dL (265-497)
[2021-08-02] MEDS ORDERED: Furosemide 40 MG/4 ML VIAL SLOW IVP SCH (01:00)
[2021-08-02 02:14] VITALS: BMI 20.7
[2021-08-02 06:02] LABS: Creatinine, Urine 42.87 mg/dL (47-110)
[2021-08-02] MEDS: Levothyroxine Sodium 125 MCG TAB PO SCH ×2 (06:05→07:48)
[2021-08-02] MEDS: Carvedilol 25 MG TAB PO SCH ×2 (07:45→17:31)
[2021-08-02] MEDS: Digoxin 0.125 MG TAB PO SCH (07:46)
[2021-08-02] MEDS: Empagliflozin 10 MG TAB PO SCH (07:59)
[2021-08-02] MEDS ORDERED: FLU VACC QS2021-22(65YR UP)/PF 240 MCG/0.7 ML SYRINGE IM ONE (09:00)
[2021-08-02] MEDS ORDERED: Torsemide 20 MG TAB PO SCH (09:00)
[2021-08-02 11:04] LABS: #Eosinphils 0.3 thou/uL (0.0-0.7); #Lymphocytes 0.9 thou/uL (1.20-3.40); #Monocytes 1.1 thou/uL (0.11-0.59); #Neutrophils 12.4 thou/uL (1.40-6.50); %Basophils 0.3 % (0.0-1.0); %Eosinophils 2.2 % (0.0-10.0); %Lymphocytes 5.9 % (21.0-51.0); %Monocytes 7.2 % (0.0-10.0); %Neutrophils 84.4 % (42.0-75.0); Mean Corpuscular HGB CONC 32.6 g/dL (32.0-36.0); Mean Corpuscular Hemoglobin 30.7 pg (27.0-31.0); Mean Corpuscular Volume 94.1 fL (78.0-98.0); Mean Platelet Volume 9.5 fL (7.4-10.4); Platelet Count 148 thou/uL (130-400); RBC Distribution Width 13.8 % (11.5-14.5); Red Blood Cell (RBC) Count 3.27 mill/uL (4.20-5.40); White Blood Cell (WBC) Count 14.7 thou/uL (4.8-10.8)
[2021-08-02 11:22] LABS: Anion Gap 15 mmol/L (10-20); BUN (Urea Nitrogen) 48 mg/dL (9.8-20.1); Calc. Creatinine Clearance 33 mL/min (70-130); Carbon Dioxide 24 mmol/L (23-31); Chloride 110 mmol/L (98-107); Potassium 3.4 mmol/L (3.5-5.1); Sodium 146 mmol/L (136-145)
[2021-08-02 11:23] LABS: Albumin 3.8 g/dL (3.4-4.8); BUN/Creatinine Ratio 42.11; Calcium 8.2 mg/dL (7.8-10.44); Glucose 115 mg/dL (83-110); Phosphorus 3.5 mg/dL (2.3-4.7)
[2021-08-02 11:33] LABS: Critical Call Chem Troponin I RESULT DECREASING; Troponin I 2.304 ng/mL (< 0.028)
[2021-08-02] MEDS ORDERED: Clopidogrel Bisulfate 75 MG TAB PO SCH (14:45)
[2021-08-02] MEDS ORDERED: Aspirin Chewable 81 MG TAB PO SCH (14:45)
[2021-08-02] MEDS: Pantoprazole 40 MG VIAL IVP SCH (20:38)
[2021-08-02 21:55] LABS: Hemoglobin 9.5 g/dL (12.0-16.0)
[2021-08-03] MEDS: Levothyroxine Sodium 125 MCG TAB PO SCH (06:09)
[2021-08-03] MEDS: Aspirin 81 mg Enteric Coated Tablet PO SCH (08:42)
[2021-08-03] MEDS: Digoxin 0.125 MG TAB PO SCH (08:42)
[2021-08-03] MEDS: Clopidogrel Bisulfate 75 MG TAB PO SCH (08:44)
[2021-08-03] MEDS: Pantoprazole 40 MG VIAL IVP SCH ×2 (08:46→20:53)
[2021-08-03 09:06] LABS: Hemoglobin 9.5 g/dL (12.0-16.0)
[2021-08-03] MEDS: Carvedilol 25 MG TAB PO SCH ×2 (09:06→17:27)
[2021-08-03 09:23] LABS: Anion Gap 13 mmol/L (10-20); BUN (Urea Nitrogen) 33 mg/dL (9.8-20.1); Calc. Creatinine Clearance 36 mL/min (70-130); Calcium 7.8 mg/dL (7.8-10.44); Carbon Dioxide 26 mmol/L (23-31); Chloride 109 mmol/L (98-107); Glucose 91 mg/dL (83-110); Potassium 3.1 mmol/L (3.5-5.1); Sodium 145 mmol/L (136-145)
[2021-08-03] MEDS: Empagliflozin 10 MG TAB PO SCH (09:25)
[2021-08-03] MEDS ORDERED: Potassium Chloride 20 MEQ in Premix Bag 1 BAG IVPB SCH (10:30)
[2021-08-03] MEDS: Simvastatin 10 MG TAB PO SCH (22:32)
[2021-08-04] MEDS: Levothyroxine Sodium 125 MCG TAB PO SCH (06:27)
[2021-08-04 06:33] LABS: Anion Gap 12 mmol/L (10-20); BUN (Urea Nitrogen) 20 mg/dL (9.8-20.1); Calc. Creatinine Clearance 37 mL/min (70-130); Calcium 7.8 mg/dL (7.8-10.44); Carbon Dioxide 25 mmol/L (23-31); Chloride 109 mmol/L (98-107); Glucose 102 mg/dL (83-110); Potassium 3.4 mmol/L (3.5-5.1); Sodium 143 mmol/L (136-145)
[2021-08-04] MEDS: Carvedilol 25 MG TAB PO SCH ×2 (09:47→17:21)
[2021-08-04] MEDS: Aspirin 81 mg Enteric Coated Tablet PO SCH (09:48)
[2021-08-04] MEDS: Digoxin 0.125 MG TAB PO SCH (09:48)
[2021-08-04] MEDS: Pantoprazole 40 MG VIAL IVP SCH ×2 (09:48→21:47)
[2021-08-04] MEDS: Clopidogrel Bisulfate 75 MG TAB PO SCH (09:48)
[2021-08-04] MEDS ORDERED: Iron, Sodium Ferric Gluconate 250 MG in Sodium Chloride 0.9% 250 ML 250 ML IVPB SCH ×2 (10:00→21:00)
[2021-08-04 10:51] LABS: Hemoglobin 9.4 g/dL (12.0-16.0); Platelet Count 136 thou/uL (130-400)
[2021-08-04] MEDS: Empagliflozin 10 MG TAB PO SCH (11:32)
[2021-08-04] MEDS ORDERED: Potassium Chloride 20 MEQ TAB PO SCH (12:00)
[2021-08-04] MEDS: Simvastatin 10 MG TAB PO SCH (21:48)
[2021-08-05] MEDS: Levothyroxine Sodium 125 MCG TAB PO SCH (05:03)
[2021-08-05 06:23] LABS: #Eosinphils 0.4 thou/uL (0.0-0.7); #Monocytes 1.1 thou/uL (0.11-0.59); #Neutrophils 7.6 thou/uL (1.40-6.50); %Basophils 0.1 % (0.0-1.0); %Eosinophils 4.4 % (0.0-10.0); %Monocytes 10.9 % (0.0-10.0); %Neutrophils 74.7 % (42.0-75.0); Hemoglobin 9.5 g/dL (12.0-16.0); Mean Corpuscular HGB CONC 31.9 g/dL (32.0-36.0); Mean Corpuscular Hemoglobin 30.5 pg (27.0-31.0); Mean Corpuscular Volume 95.4 fL (78.0-98.0); Mean Platelet Volume 10.4 fL (7.4-10.4); Platelet Count 126 thou/uL (130-400); Red Blood Cell (RBC) Count 3.12 mill/uL (4.20-5.40); White Blood Cell (WBC) Count 10.1 thou/uL (4.8-10.8)
[2021-08-05 06:46] LABS: Anion Gap 14 mmol/L (10-20); BUN (Urea Nitrogen) 17 mg/dL (9.8-20.1); Calc. Creatinine Clearance 37 mL/min (70-130); Calcium 7.4 mg/dL (7.8-10.44); Carbon Dioxide 19 mmol/L (23-31); Chloride 109 mmol/L (98-107); Glucose 89 mg/dL (83-110); Potassium 3.6 mmol/L (3.5-5.1); Sodium 138 mmol/L (136-145)
[2021-08-05 08:18] VITALS: BP 145/66; TEMP 97.8
[2021-08-05] MEDS: Aspirin 81 mg Enteric Coated Tablet PO SCH (08:45)
[2021-08-05] MEDS: Carvedilol 25 MG TAB PO SCH (08:46)
[2021-08-05] MEDS: Empagliflozin 10 MG TAB PO SCH (08:46)
[2021-08-05] MEDS: Clopidogrel Bisulfate 75 MG TAB PO SCH (08:47)
[2021-08-05] MEDS: Digoxin 0.125 MG TAB PO SCH (08:47)
[2021-08-05] MEDS: Pantoprazole 40 MG VIAL IVP SCH (09:23)
== END 2021-08-05 12:15 | disposition home health service (06) | DRG 377 ==
LOC: ERS 15:05 → ERHOLD 19:59 → CCU 08-02 02:00 → NEURO 08-03 02:09
PROVIDERS: ADMIT Internal Medicine; ATTEND Hospitalist
PROC: 30233N1 Transfusion of Nonautologous Red Blood Cells into Peripheral Vein, Percutaneous Approach (ICD-10-PCS; principal; 2021-08-01)
DX: K92.2 Gastrointestinal hemorrhage, unspecified (principal); I50.33 Acute on chronic diastolic (congestive) heart failure; I21.A1 Myocardial infarction type 2; D62 Acute posthemorrhagic anemia; I25.810 Atherosclerosis of coronary artery bypass graft(s) without angina pectoris; I48.21 Permanent atrial fibrillation; I13.0 Hypertensive heart and chronic kidney disease with heart failure and stage 1 through stage 4 chronic kidney disease, or unspecified chronic kidney disease; N17.9 Acute kidney failure, unspecified; Z20.822 Contact with and (suspected) exposure to COVID-19; N18.9 Chronic kidney disease, unspecified; D50.9 Iron deficiency anemia, unspecified; Z95.1 Presence of aortocoronary bypass graft; Z88.0 Allergy status to penicillin; Z88.1 Allergy status to other antibiotic agents; Z79.899 Other long term (current) drug therapy; Z79.890 Hormone replacement therapy; Z79.82 Long term (current) use of aspirin; Z90.49 Acquired absence of other specified parts of digestive tract; Z90.710 Acquired absence of both cervix and uterus
CPT/HCPCS: 36415; 36416; 36430; 71045; 76936; 80048; 80053; 80069; 80162; 82274; 82553; 82570; 82728; 83540; 83550; 83880; 84300; 84443; 84484; 85014; 85018; 85025; 85046; 85049; 86850; 86900; 86901; 93005; 96365; 96366; 96376; C9113; J1940; J2916; J3480; J3490; J7050; P9016

== ENCOUNTER 2021-08-15 08:52 | Day surgery (SDC) | payer MEDICARE ==
[2021-08-15 09:50] VITALS: TEMP 97.7
[2021-08-15] MEDS ORDERED: Acetaminophen 500 MG TAB ONE ×2 (10:15→11:07)
[2021-08-15] MEDS ORDERED: diphenhydrAMINE 25 MG CAP ONE (10:15)
[2021-08-15] MEDS ORDERED: Dexamethasone 10 MG/ML VIAL ONE (11:07)
[2021-08-15] MEDS ORDERED: diphenhydrAMINE 50 MG/ML VIAL ONE (11:07)
[2021-08-15] MEDS ORDERED: Acetaminophen 500 MG TAB PO SCH (11:30)
[2021-08-15] MEDS ORDERED: Dexamethasone 4 mg/ml Vial SLOW IVP SCH (11:30)
[2021-08-15] MEDS ORDERED: diphenhydrAMINE 50 MG/ML VIAL IVP SCH (11:30)
[2021-08-15 14:35] VITALS: BP 142/65
== END 2021-08-15 11:50 | disposition short-term general hospital (02) ==
LOC: ONC/OP 08:52
PROVIDERS: ATTEND Internal Medicine Hematology & Oncology
PROC: 30233N1 Transfusion of Nonautologous Red Blood Cells into Peripheral Vein, Percutaneous Approach (ICD-10-PCS; principal; 2021-08-15)
DX: D64.9 Anemia, unspecified (principal); D69.6 Thrombocytopenia, unspecified; Z88.0 Allergy status to penicillin; Z88.1 Allergy status to other antibiotic agents
CPT/HCPCS: 36430; 86850; 86900; 86901; 99211; G0463; J1100; J1200; P9016

== ENCOUNTER 2021-08-15 11:48 | Observation (INO) | payer MEDICARE ==
[2021-08-15 12:35] LABS: #Eosinphils 0.2 thou/uL (0.0-0.7); #Lymphocytes 0.2 thou/uL (1.20-3.40); #Monocytes 0.1 thou/uL (0.11-0.59); #Neutrophils 10.8 thou/uL (1.40-6.50); %Basophils 0.1 % (0.0-1.0); %Eosinophils 1.4 % (0.0-10.0); %Lymphocytes 2.1 % (21.0-51.0); %Neutrophils 95.3 % (42.0-75.0); Hemoglobin 9.2 g/dL (12.0-16.0); Mean Corpuscular HGB CONC 32.8 g/dL (32.0-36.0); Mean Corpuscular Hemoglobin 32.1 pg (27.0-31.0); Mean Corpuscular Volume 97.7 fL (78.0-98.0); RBC Distribution Width 15.1 % (11.5-14.5); Red Blood Cell (RBC) Count 2.88 mill/uL (4.20-5.40); White Blood Cell (WBC) Count 11.4 thou/uL (4.8-10.8)
[2021-08-15 12:52] LABS: ALT (SGPT) 16 U/L (8-55); AST (SGOT) 21 U/L (5-34); Albumin 3.7 g/dL (3.4-4.8); Alkaline Phosphatase 68 U/L (40-110); Anion Gap 17 mmol/L (10-20); BUN (Urea Nitrogen) 27 mg/dL (9.8-20.1); Bilirubin, Total 0.6 mg/dL (0.2-1.2); Calc. Creatinine Clearance 0 mL/min (70-130); Calcium 7.9 mg/dL (7.8-10.44); Carbon Dioxide 21 mmol/L (23-31); Chloride 110 mmol/L (98-107); Globulin 2.3 g/dL (2.4-3.5); Glucose 116 mg/dL (83-110); Mean Platelet Volume 9.9 fL (7.4-10.4); Platelet Count 114 thou/uL (130-400); Potassium 4.5 mmol/L (3.5-5.1); Sodium 143 mmol/L (136-145)
[2021-08-15 12:53] LABS: MDiff Complete? YES; Ovalocytes SLIGHT = 2-5 cells (100X) (0-1/hpf); Platelet Morphology Comment Appears Decreased; Polychromasia SLIGHT = 2-3 cells (100X) (0-2/hpf)
[2021-08-15] MEDS ORDERED: Furosemide 40 MG/4 ML VIAL ONE (14:27)
[2021-08-15] MEDS ORDERED: Nitroglycerin 0.4 MG TAB (25 Tab Bottle) SL PRN (15:08)
[2021-08-15] MEDS ORDERED: cloNIDine 0.1 MG TAB PO PRN (15:09)
[2021-08-15] MEDS ORDERED: Senokot S 8.6-50 MG TAB PO PRN (15:13)
[2021-08-15] MEDS ORDERED: Acetaminophen 325 MG TAB PO PRN (15:13)
[2021-08-15] MEDS ORDERED: Calcium Carbonate 500 MG ChewTAB PO PRN (15:13)
[2021-08-15 15:18] LABS: CKMB 1.7 ng/mL (0-6.6)
[2021-08-15 17:33] LABS: #Basophils 0.2 thou/uL (0.0-0.2); #Lymphocytes 0.1 thou/uL (1.20-3.40); #Monocytes 0.1 thou/uL (0.11-0.59); #Neutrophils 8.5 thou/uL (1.40-6.50); %Basophils 1.9 % (0.0-1.0); %Eosinophils 0.2 % (0.0-10.0); %Lymphocytes 1.5 % (21.0-51.0); %Monocytes 0.5 % (0.0-10.0); %Neutrophils 95.9 % (42.0-75.0); Hemoglobin 9.5 g/dL (12.0-16.0); Mean Corpuscular HGB CONC 30.9 g/dL (32.0-36.0); Mean Corpuscular Hemoglobin 30.6 pg (27.0-31.0); Mean Corpuscular Volume 99.1 fL (78.0-98.0); Mean Platelet Volume 9.9 fL (7.4-10.4); Platelet Count 127 thou/uL (130-400); RBC Distribution Width 15.4 % (11.5-14.5); Red Blood Cell (RBC) Count 3.11 mill/uL (4.20-5.40); White Blood Cell (WBC) Count 8.9 thou/uL (4.8-10.8)
[2021-08-15 17:45] LABS: Anion Gap 15 mmol/L (10-20); BUN (Urea Nitrogen) 28 mg/dL (9.8-20.1); Calc. Creatinine Clearance 0 mL/min (70-130); Calcium 8.1 mg/dL (7.8-10.44); Carbon Dioxide 22 mmol/L (23-31); Chloride 107 mmol/L (98-107); Glucose 206 mg/dL (83-110); Potassium 3.6 mmol/L (3.5-5.1); Sodium 140 mmol/L (136-145)
[2021-08-15] MEDS ORDERED: Potassium Chloride 20 MEQ TAB PO SCH (17:45)
[2021-08-15 17:52] LABS: Troponin I 0.035 ng/mL (< 0.028)
[2021-08-15] MEDS ORDERED: Potassium Chloride 20 MEQ TAB ONE (19:09)
[2021-08-15 20:13] VITALS: BMI 22.6
[2021-08-15] MEDS: Carvedilol 6.25 MG TAB PO SCH (20:55)
[2021-08-15] MEDS: Famotidine 20 MG TAB PO SCH (20:56)
[2021-08-15] MEDS ORDERED: Loratadine 10 MG TAB PO SCH (21:00)
[2021-08-15] MEDS ORDERED: Simvastatin 10 MG TAB PO SCH (21:00)
[2021-08-15 21:02] LABS: Troponin I 0.025 ng/mL (< 0.028)
[2021-08-15 21:06] LABS: SARS-CoV-2 PCR by NAA Not Detected (NotDetected)
[2021-08-16] MEDS ORDERED: Levothyroxine Sodium 125 MCG TAB PO SCH (06:00)
[2021-08-16 08:00] VITALS: TEMP 97.7
[2021-08-16] MEDS: Famotidine 20 MG TAB PO SCH (08:47)
[2021-08-16] MEDS: Carvedilol 6.25 MG TAB PO SCH (08:47)
[2021-08-16 08:52] VITALS: BP 130/60
[2021-08-16] MEDS ORDERED: Clopidogrel Bisulfate 75 MG TAB PO SCH (09:00)
[2021-08-16] MEDS ORDERED: Aspirin Chewable 81 MG TAB PO SCH (09:00)
[2021-08-16] MEDS ORDERED: Multivit, Therapeutic 1 TAB PO SCH (09:00)
[2021-08-16] MEDS ORDERED: Empagliflozin 10 MG TAB PO SCH (09:00)
[2021-08-16] MEDS ORDERED: Digoxin 0.125 MG TAB PO SCH (09:00)
[2021-08-16] MEDS ORDERED: FLU VACC QS2021-22(65YR UP)/PF 240 MCG/0.7 ML SYRINGE IM ONE (09:00)
[2021-08-16] MEDS ORDERED: Torsemide 20 MG TAB PO SCH (09:00)
[2021-08-16] MEDS ORDERED: Potassium Chloride 20 MEQ TAB PO SCH ×2 (09:00→09:45)
== END 2021-08-16 11:02 | disposition home or self-care (01) ==
LOC: ERS 11:48 → ERHOLD 14:03 → 2NO 19:50
PROVIDERS: ADMIT Internal Medicine; ATTEND Internal Medicine
DX: R42 Dizziness and giddiness (principal); R06.02 Shortness of breath; R52 Pain, unspecified; H53.8 Other visual disturbances; I25.10 Atherosclerotic heart disease of native coronary artery without angina pectoris; E89.0 Postprocedural hypothyroidism; I11.0 Hypertensive heart disease with heart failure; I50.32 Chronic diastolic (congestive) heart failure; I48.91 Unspecified atrial fibrillation; K21.9 Gastro-esophageal reflux disease without esophagitis; E11.9 Type 2 diabetes mellitus without complications; D53.9 Nutritional anemia, unspecified; D69.6 Thrombocytopenia, unspecified; Z79.02 Long term (current) use of antithrombotics/antiplatelets; Z79.82 Long term (current) use of aspirin; Z79.84 Long term (current) use of oral hypoglycemic drugs; Z79.899 Other long term (current) drug therapy; Z88.0 Allergy status to penicillin; Z88.1 Allergy status to other antibiotic agents; Z95.1 Presence of aortocoronary bypass graft; Z95.5 Presence of coronary angioplasty implant and graft; Z95.810 Presence of automatic (implantable) cardiac defibrillator; Z95.818 Presence of other cardiac implants and grafts; Z20.822 Contact with and (suspected) exposure to COVID-19
CPT/HCPCS: 71045; 80048; 80053; 82553; 83880; 84484 ×2; 85025 ×2; 93005; 96374; 99285; U0003; U0005; 36415; G0378; J1940

== ENCOUNTER 2021-08-20 13:18 | Observation (INO) | payer MEDICARE ==
[2021-08-20] MEDS ORDERED: Ondansetron ODT 4 MG TAB PO PRN (13:51)
[2021-08-20 15:39] LABS: #Eosinphils 0.2 thou/uL (0.0-0.7); #Lymphocytes 0.6 thou/uL (1.20-3.40); #Monocytes 0.5 thou/uL (0.11-0.59); #Neutrophils 4.1 thou/uL (1.40-6.50); %Basophils 0.5 % (0.0-1.0); %Lymphocytes 10.8 % (21.0-51.0); %Monocytes 8.5 % (0.0-10.0); %Neutrophils 77.3 % (42.0-75.0); Hemoglobin 7.7 g/dL (12.0-16.0); Mean Corpuscular HGB CONC 31.1 g/dL (32.0-36.0); Mean Corpuscular Hemoglobin 30.9 pg (27.0-31.0); Mean Corpuscular Volume 99.3 fL (78.0-98.0); Mean Platelet Volume 9.1 fL (7.4-10.4); Platelet Count 141 thou/uL (130-400); RBC Distribution Width 15.2 % (11.5-14.5); Red Blood Cell (RBC) Count 2.49 mill/uL (4.20-5.40); White Blood Cell (WBC) Count 5.3 thou/uL (4.8-10.8)
[2021-08-20 15:44] VITALS: BMI 20.7
[2021-08-20] MEDS: diphenhydrAMINE 25 MG CAP PO PRN ×2 (18:27→23:47)
[2021-08-20] MEDS: Acetaminophen 500 MG TAB PO PRN ×2 (18:27→23:46)
[2021-08-20] MEDS ORDERED: Dexamethasone 4 MG TAB PO SCH (18:30)
[2021-08-20] MEDS: Carvedilol 6.25 MG TAB PO SCH (18:34)
[2021-08-21] MEDS ORDERED: Levothyroxine Sodium 125 MCG TAB PO SCH (06:00)
[2021-08-21 07:37] LABS: SARS-CoV-2 PCR by NAA Not Detected (NotDetected)
[2021-08-21] MEDS ORDERED: Potassium Chloride 20 MEQ TAB PO SCH (08:00)
[2021-08-21] MEDS ORDERED: Dexamethasone 4 MG TAB PO SCH (08:00)
[2021-08-21] MEDS ORDERED: Torsemide 20 MG TAB PO SCH (09:00)
[2021-08-21] MEDS ORDERED: Clopidogrel Bisulfate 75 MG TAB PO SCH (09:00)
[2021-08-21] MEDS ORDERED: Empagliflozin 10 MG TAB PO SCH (09:00)
[2021-08-21] MEDS: Carvedilol 6.25 MG TAB PO SCH (09:37)
[2021-08-21 09:51] LABS: #Lymphocytes 0.4 thou/uL (1.20-3.40); #Monocytes 0.1 thou/uL (0.11-0.59); #Neutrophils 3.6 thou/uL (1.40-6.50); %Basophils 0.3 % (0.0-1.0); %Eosinophils 0.2 % (0.0-10.0); %Lymphocytes 9.6 % (21.0-51.0); %Monocytes 1.2 % (0.0-10.0); %Neutrophils 88.7 % (42.0-75.0); Mean Corpuscular HGB CONC 31.4 g/dL (32.0-36.0); Mean Corpuscular Hemoglobin 30.7 pg (27.0-31.0); Mean Corpuscular Volume 97.6 fL (78.0-98.0); Mean Platelet Volume 9.1 fL (7.4-10.4); Platelet Count 168 thou/uL (130-400); RBC Distribution Width 15.4 % (11.5-14.5); Red Blood Cell (RBC) Count 2.59 mill/uL (4.20-5.40)
[2021-08-21] MEDS ORDERED: Furosemide 20 MG/2 ML VIAL SLOW IVP SCH (14:00)
[2021-08-21 16:50] VITALS: BP 137/62; TEMP 97.9
== END 2021-08-21 18:13 | disposition home or self-care (01) ==
LOC: MSONC 13:28
PROVIDERS: ADMIT Internal Medicine; ATTEND Internal Medicine
DX: D62 Acute posthemorrhagic anemia (principal); I25.10 Atherosclerotic heart disease of native coronary artery without angina pectoris; I11.0 Hypertensive heart disease with heart failure; I50.33 Acute on chronic diastolic (congestive) heart failure; E89.0 Postprocedural hypothyroidism; I48.0 Paroxysmal atrial fibrillation; Z87.19 Personal history of other diseases of the digestive system; Z79.02 Long term (current) use of antithrombotics/antiplatelets; Z79.82 Long term (current) use of aspirin; Z79.84 Long term (current) use of oral hypoglycemic drugs; Z79.899 Other long term (current) drug therapy; Z88.0 Allergy status to penicillin; Z88.1 Allergy status to other antibiotic agents; Z95.0 Presence of cardiac pacemaker; Z95.1 Presence of aortocoronary bypass graft; Z95.5 Presence of coronary angioplasty implant and graft; Z95.818 Presence of other cardiac implants and grafts; Z20.822 Contact with and (suspected) exposure to COVID-19; B19.20 Unspecified viral hepatitis C without hepatic coma
CPT/HCPCS: 36430; 82728; 83540; 83550; 85025 ×2; 86850 ×2; 86900 ×2; 86901 ×2; 86920; G0378 ×2; P9016; U0003; U0005; 36415; J8540

== ENCOUNTER 2022-01-06 09:34 | Outpatient (CLI) | payer MEDICARE | END 2022-01-06 09:35 | disposition home or self-care (01) | LOC: BICULT 09:34 | PROVIDERS: ATTEND Physician Assistant Medical | DX: K74.69 Other cirrhosis of liver (principal); D50.9 Iron deficiency anemia, unspecified; I87.8 Other specified disorders of veins; J90 Pleural effusion, not elsewhere classified | CPT/HCPCS: 76705 ==

== ENCOUNTER 2022-03-29 17:32 | Inpatient (IN) | payer MEDICARE ==
[2022-03-29 18:06] LABS: #Eosinphils 0.1 thou/uL (0.0-0.7); #Lymphocytes 0.9 thou/uL (1.20-3.40); #Monocytes 0.3 thou/uL (0.11-0.59); #Neutrophils 6.4 thou/uL (1.40-6.50); %Basophils 0.3 % (0.0-1.0); %Eosinophils 1.5 % (0.0-10.0); %Lymphocytes 11.3 % (21.0-51.0); %Monocytes 3.8 % (0.0-10.0); %Neutrophils 83.1 % (42.0-75.0); Hemoglobin 11.6 g/dL (12.0-16.0); Mean Corpuscular Hemoglobin 33.2 pg (27.0-31.0); Mean Platelet Volume 10.5 fL (7.4-10.4); Platelet Count 82 thou/uL (130-400); RBC Distribution Width 16.4 % (11.5-14.5); Red Blood Cell (RBC) Count 3.51 mill/uL (4.20-5.40); White Blood Cell (WBC) Count 7.7 thou/uL (4.8-10.8)
[2022-03-29 18:29] LABS: ALT (SGPT) 35 U/L (8-55); AST (SGOT) 27 U/L (5-34); Albumin 3.8 g/dL (3.4-4.8); Alkaline Phosphatase 113 U/L (40-110); Anion Gap 18 mmol/L (10-20); BUN (Urea Nitrogen) 89 mg/dL (9.8-20.1); Bilirubin, Total 1.4 mg/dL (0.2-1.2); CK (CPK) 36 U/L (29-168); Calc. Creatinine Clearance 0 mL/min (70-130); Calcium 7.2 mg/dL (7.8-10.44); Carbon Dioxide 32 mmol/L (23-31); Chloride 94 mmol/L (98-107); Estimated GFR 23; Globulin 2.6 g/dL (2.4-3.5); Glucose 87 mg/dL (83-110); Protein, Total 6.4 g/dL (5.8-8.1); Sodium 141 mmol/L (136-145)
[2022-03-29 18:35] LABS: Potassium 2.8 mmol/L (3.5-5.1)
[2022-03-29 18:51] LABS: CKMB 2.7 ng/mL (0-6.6)
[2022-03-29 19:45] LABS: SARS-CoV-2 NAA Rapid Test Not Detected (NotDetected)
[2022-03-29] MEDS ORDERED: Electrolyte Replacement Protocol 1 EACH FS PRN (20:00)
[2022-03-29] MEDS ORDERED: Potassium Chloride 20 MEQ in Sodium Chloride 0.9% 250 ML 250 ML IVPB SCH (20:00)
[2022-03-29] MEDS ORDERED: Acetaminophen 650 MG Suppository PR PRN (20:11)
[2022-03-29] MEDS ORDERED: Acetaminophen 325 MG TAB PO PRN (20:11)
[2022-03-29] MEDS ORDERED: Ondansetron ODT 4 MG TAB PO PRN (20:11)
[2022-03-29] MEDS ORDERED: Ondansetron PF 4 MG/2 ML Vial IVP PRN (20:11)
[2022-03-29 20:20] LABS: Magnesium 2.3 mg/dL (1.6-2.6)
[2022-03-29] MEDS ORDERED: Furosemide 100 MG/10 ML VIAL SLOW IVP SCH (21:15)
[2022-03-29 21:54] LABS: Actual Bicarbonate (HCO3a) 34.6 mEq/L (22-28); Base Excess (BEa) 6.5 mEq/L (-2.0 to +3.0); Calcium, Ionized (arterial) 0.88 mmol/L (1.12-1.30); Carboxyhemoglobin (COHb) 1.2 gm% (0.0-3.0); Hemoglobin (Hb) 11.2 g/dL (12.0-16.0); O2 Tension (PaO2), arterial 111.3 mmHg (> 60.0); Potassium - ABG Lab 2.86 mmol/L (3.70-5.30); pH, Arterial 7.31 (7.35-7.45)
[2022-03-29 22:04] VITALS: BMI 18.9
[2022-03-29 22:08] LABS: CO2 Tension 69.6 mmHg (35.0-45.0); Puncture Site BBR
[2022-03-29 22:57] LABS: Bilirubin Negative (Negative); Blood, Urine Negative (Negative); Clarity Clear (Clear); Glucose, Urine (Dipstick) Normal (Negative); Ketone, Urine Negative (Negative); Leukocyte Negative Leu/uL (Negative); Nitrite Negative (Negative); Protein, Urine (Dipstick) 20 mg/dL (Neg-Trace); RBC/HPF 0-3 HPF (0-3); Specific Gravity, Urine 1.013 (1.002-1.036); Squamous Epithelial 0-3 HPF (0-3); Urobilinogen Normal mg/dL (Less than 2); WBC/HPF 0-3 HPF (0-3); pH, Urine 5.5 (5.0-9.0)
[2022-03-29 22:58] LABS: Bacteria/HPF Rare-Few HPF (None Seen)
[2022-03-29] MEDS: Enoxaparin Sodium 60 MG/0.6 ML SYRINGE SC SCH (23:45)
[2022-03-30] LABS: Troponin I 0.223 ng/mL (< 0.028)
[2022-03-30] MEDS ORDERED: Potassium Chloride 20 MEQ in Premix Bag 1 BAG IVPB SCH (00:45)
[2022-03-30] MEDS ORDERED: Potassium Chloride 40 MEQ in Sodium Chloride 0.9% 500 ML IVPB SCH (01:30)
[2022-03-30 04:28] LABS: Anion Gap 24 mmol/L (10-20); BUN (Urea Nitrogen) 90 mg/dL (9.8-20.1); Calc. Creatinine Clearance 16 mL/min (70-130); Calcium 7.2 mg/dL (7.8-10.44); Carbon Dioxide 27 mmol/L (23-31); Chloride 98 mmol/L (98-107); Estimated GFR 22; Glucose 90 mg/dL (83-110); Magnesium 2.5 mg/dL (1.6-2.6); Potassium 3.3 mmol/L (3.5-5.1); Sodium 146 mmol/L (136-145)
[2022-03-30 04:53] LABS: #Eosinphils 0.1 thou/uL (0.0-0.7); #Lymphocytes 1.3 thou/uL (1.20-3.40); #Monocytes 0.4 thou/uL (0.11-0.59); #Neutrophils 6.6 thou/uL (1.40-6.50); %Basophils 0.2 % (0.0-1.0); %Eosinophils 0.8 % (0.0-10.0); %Lymphocytes 15.3 % (21.0-51.0); %Monocytes 4.3 % (0.0-10.0); %Neutrophils 79.4 % (42.0-75.0); Hemoglobin 12.2 g/dL (12.0-16.0); MDiff Complete? YES; Macrocytosis SLIGHT = 6-15 cells (100X) (0-5/hpf); Mean Corpuscular HGB CONC 30.7 g/dL (32.0-36.0); Mean Corpuscular Hemoglobin 32.7 pg (27.0-31.0); Mean Platelet Volume 10.6 fL (7.4-10.4); Platelet Count 82 thou/uL (130-400); Platelet Morphology Comment Appears Decreased; RBC Distribution Width 16.6 % (11.5-14.5); Red Blood Cell (RBC) Count 3.74 mill/uL (4.20-5.40); White Blood Cell (WBC) Count 8.3 thou/uL (4.8-10.8)
[2022-03-30] MEDS: Furosemide 20 MG/2 ML VIAL SLOW IVP SCH ×2 (05:57→13:49)
[2022-03-30] MEDS ORDERED: Empagliflozin 10 MG TAB PO SCH (09:00)
[2022-03-30] MEDS ORDERED: Aspirin Chewable 81 MG TAB PO SCH (09:00)
[2022-03-30] MEDS ORDERED: Enoxaparin Sodium 40 MG/0.4 ML SYRINGE SC SCH (09:00)
[2022-03-30] MEDS: Aspirin Chewable 81 MG TAB PO SCH (09:11)
[2022-03-30] MEDS: Carvedilol 3.125 MG TAB PO SCH ×2 (09:11→20:36)
[2022-03-30 10:39] LABS: Free T4 (Free Thyroxine) 0.64 ng/dL (0.70-1.48); Thyroid Stimulating Hormone 9.6403 uIU/mL (0.35-4.94)
[2022-03-30] MEDS ORDERED: HumaLOG 300 UNITS/3 ML VIAL SC PRN (11:11)
[2022-03-30] MEDS: Potassium Chloride 20 MEQ in Premix Bag 1 BAG IVPB SCH ×2 (11:38→13:49)
[2022-03-30] MEDS ORDERED: Levothyroxine Sodium 200 MCG VIAL IVP SCH (16:00)
[2022-03-30 16:17] LABS: Actual Bicarbonate (HCO3v) 29 mEq/L (22-28); Base Excess 3.7 mEq/L (-2.0 to +3.0); Calcium, Ionized (venous) 0.71 mmol/L (1.16-1.32); Chloride (VBG) 102 mmol/L (98-106); Hemoglobin (Hb) 12.4 g/dL (11.7-16.1); Potassium (VBG) 4.42 mmol/L (3.70-5.30); Sodium 143.6 mmol/L (133-146)
[2022-03-30] MEDS ORDERED: Simvastatin 5 MG TAB PO SCH (21:00)
[2022-03-30] MEDS ORDERED: EPINEPHrine 1 MG/10 ML Abboject SYRINGE ONE (22:29)
[2022-03-30] MEDS ORDERED: Rocuronium Bromide 10 MG/ML (10ML VIAL) ONE (22:29)
[2022-03-30] MEDS ORDERED: NOREPINEPHRINE 8 MG/250 ML-D5W 250 ML IVPB SCH (22:30)
[2022-03-30] MEDS ORDERED: Sodium Chloride 0.9% 500 ML IVPB SCH (22:30)
[2022-03-30] MEDS ORDERED: Fentanyl 100 MCG/2 ML VIAL ONE (22:44)
[2022-03-30] MEDS ORDERED: Fentanyl 100 MCG/2 ML VIAL SLOW IVP SCH (23:00)
[2022-03-30] MEDS ORDERED: NOREPINEPHRINE 8 MG/250 ML-D5W 250 ML IVPB PRN (23:03)
[2022-03-30] MEDS ORDERED: Midazolam HCl 2 mg/2 ml Vial SLOW IVP PRN (23:11)
[2022-03-30] MEDS ORDERED: Fentanyl CADD 100 ML IV SCH (23:15)
[2022-03-30] MEDS ORDERED: Propofol BOLUS 1,000 MG/100 ML VIAL IV PRN (23:15)
[2022-03-30] MEDS ORDERED: Fentanyl BOLUS 250 ML IVPB PRN (23:15)
[2022-03-30] MEDS ORDERED: Ventilator Sedation Protocol 1 EACH FS SCH (23:15)
[2022-03-30] MEDS ORDERED: Morphine 4 MG/ML VIAL SLOW IVP PRN (23:15)
[2022-03-30] MEDS ORDERED: DISCONTINUE PREVIOUS NARCOTIC PAIN MEDICATIONS AND BENZODIAZEPINES FS SCH (23:15)
[2022-03-30] MEDS ORDERED: Propofol 1,000 MG/100 ML VIAL IV PRN (23:15)
[2022-03-30 23:30] LABS: #Basophils 0.1 thou/uL (0.0-0.2); #Eosinphils 0.1 thou/uL (0.0-0.7); #Lymphocytes 1.5 thou/uL (1.20-3.40); #Monocytes 0.3 thou/uL (0.11-0.59); #Neutrophils 8.3 thou/uL (1.40-6.50); %Basophils 0.6 % (0.0-1.0); %Eosinophils 0.9 % (0.0-10.0); %Lymphocytes 14.8 % (21.0-51.0); %Monocytes 3.2 % (0.0-10.0); %Neutrophils 80.5 % (42.0-75.0); Hemoglobin 11.3 g/dL (12.0-16.0); Mean Corpuscular HGB CONC 30.1 g/dL (32.0-36.0); Mean Platelet Volume 10.5 fL (7.4-10.4); Platelet Count 101 thou/uL (130-400); RBC Distribution Width 17.3 % (11.5-14.5); Red Blood Cell (RBC) Count 3.55 mill/uL (4.20-5.40); White Blood Cell (WBC) Count 10.3 thou/uL (4.8-10.8)
[2022-03-30 23:43] LABS: CO2 Tension 52.5 mmHg (35.0-45.0); Carboxyhemoglobin (COHb) 0.9 gm% (0.0-3.0); Hemoglobin (Hb) 11.9 g/dL (12.0-16.0); O2 Tension (PaO2), arterial 148.1 mmHg (> 60.0); Potassium - ABG Lab 3.68 mmol/L (3.70-5.30)
[2022-03-30 23:47] LABS: ALT (SGPT) 391 U/L (8-55); AST (SGOT) 722 U/L (5-34); Albumin 3.2 g/dL (3.4-4.8); Alkaline Phosphatase 453 U/L (40-110); Anion Gap 25 mmol/L (10-20); BUN (Urea Nitrogen) 113 mg/dL (9.8-20.1); Bilirubin, Total 2.6 mg/dL (0.2-1.2); Calc. Creatinine Clearance 12 mL/min (70-130); Calcium 6.3 mg/dL (7.8-10.44); Carbon Dioxide 22 mmol/L (23-31); Chloride 104 mmol/L (98-107); Estimated GFR 16; Globulin 2.2 g/dL (2.4-3.5); Potassium 4.1 mmol/L (3.5-5.1); Protein, Total 5.4 g/dL (5.8-8.1); Sodium 147 mmol/L (136-145)
[2022-03-30 23:53] LABS: ALV-art Gradient 214.075 mmHg (0-20); Puncture Site LBA
[2022-03-31 00:01] LABS: Glucose 39 mg/dL (83-110)
[2022-03-31] MEDS ORDERED: Dextrose 50% Abboject 50 ML SYRINGE ONE (00:04)
[2022-03-31] MEDS ORDERED: Dextrose 5% in Water 1,000 ML IV PRN (00:45)
[2022-03-31] MEDS ORDERED: Dextrose 50% Abboject 50 ML SYRINGE IVP PRN (00:45)
[2022-03-31] MEDS ORDERED: Dextrose 10% in Water 1,000 ML IV SCH (01:00)
[2022-03-31 01:51] LABS: Lactic Acid 2.1 mmol/L (0.5-2.2)
[2022-03-31] MEDS: Enoxaparin Sodium 60 MG/0.6 ML SYRINGE SC SCH (04:19)
[2022-03-31 04:23] LABS: ALT (SGPT) 419 U/L (8-55); AST (SGOT) 666 U/L (5-34); Alkaline Phosphatase 428 U/L (40-110); Anion Gap 23 mmol/L (10-20); BUN (Urea Nitrogen) 114 mg/dL (9.8-20.1); Bilirubin, Total 3.2 mg/dL (0.2-1.2); Calc. Creatinine Clearance 12 mL/min (70-130); Calcium 6.4 mg/dL (7.8-10.44); Carbon Dioxide 26 mmol/L (23-31); Chloride 103 mmol/L (98-107); Estimated GFR 16; Globulin 2.3 g/dL (2.4-3.5); Glucose 173 mg/dL (83-110); Potassium 3.7 mmol/L (3.5-5.1); Protein, Total 5.3 g/dL (5.8-8.1); Sodium 148 mmol/L (136-145)
[2022-03-31] MEDS: Furosemide 20 MG/2 ML VIAL SLOW IVP SCH (05:40)
[2022-03-31] MEDS ORDERED: Levothyroxine Sodium 200 MCG VIAL IVP SCH (06:00)
[2022-03-31] MEDS ORDERED: Levothyroxine Sodium 125 MCG TAB PO SCH (06:00)
[2022-03-31] MEDS ORDERED: Cosyntropin 250 MCG VIAL SLOW IVP SCH (07:30)
[2022-03-31 07:37] LABS: Actual Bicarbonate (HCO3a) 28.4 mEq/L (22-28); Base Excess (BEa) 3.4 mEq/L (-2.0 to +3.0); CO2 Tension 44.9 mmHg (35.0-45.0); Calcium, Ionized (arterial) 0.81 mmol/L (1.12-1.30); Carboxyhemoglobin (COHb) 1.4 gm% (0.0-3.0); Hemoglobin (Hb) 12.5 g/dL (12.0-16.0); O2 Tension (PaO2), arterial 76.6 mmHg (> 60.0); Potassium - ABG Lab 3.47 mmol/L (3.70-5.30); pH, Arterial 7.42 (7.35-7.45)
[2022-03-31 07:38] LABS: ALV-art Gradient 188.125 mmHg (0-20); Puncture Site LBA
[2022-03-31] MEDS ORDERED: Sodium Chloride 0.9% 500 ML IV SCH (09:45)
[2022-03-31] MEDS ORDERED: Sodium Chloride 0.9% 1,000 ML IV SCH (09:45)
[2022-03-31] MEDS: Aspirin Chewable 81 MG TAB PO SCH (09:59)
[2022-03-31 10:45] VITALS: BP 97/44
[2022-03-31] MEDS: Hydrocortisone Sod Succ/PF 100 mg/2 ml Vial IVP SCH ×2 (11:42→15:22)
[2022-03-31] MEDS ORDERED: Midazolam HCl 2 mg/2 ml Vial SLOW IVP PRN ×3 (13:33→14:30)
[2022-03-31] MEDS ORDERED: Morphine 2 MG/ML VIAL SLOW IVP PRN (13:34)
[2022-03-31] MEDS ORDERED: Morphine 4 MG/ML VIAL SLOW IVP PRN (14:15)
[2022-03-31 14:17] VITALS: TEMP 98.9
[2022-03-31] MEDS ORDERED: Hyoscyamine Sulfate SL 0.125 mg Tablet SL PRN (14:18)
[2022-04-01] MEDS ORDERED: Levothyroxine 100 MCG SDV IVP SCH (06:00)
[2022-04-01] MEDS ORDERED: Levothyroxine Sodium 125 MCG TAB PO SCH (06:00)
== END 2022-03-31 15:28 | disposition expired ==
LOC: ERS 17:32 → IMCU/EMU 19:53 → CCU 03-30 23:17
PROVIDERS: ADMIT Student in an Organized Health Care Education/Training Program; ATTEND Internal Medicine
PROC: 02HV33Z Insertion of Infusion Device into Superior Vena Cava, Percutaneous Approach (ICD-10-PCS; principal; 2022-03-30)
PROC: 0BH17EZ Insertion of Endotracheal Airway into Trachea, Via Natural or Artificial Opening (ICD-10-PCS; 2022-03-30)
PROC: 5A1935Z Respiratory Ventilation, Less than 24 Consecutive Hours (ICD-10-PCS; 2022-03-30)
DX: I13.0 Hypertensive heart and chronic kidney disease with heart failure and stage 1 through stage 4 chronic kidney disease, or unspecified chronic kidney disease (principal); G93.41 Metabolic encephalopathy; I21.A1 Myocardial infarction type 2; I50.43 Acute on chronic combined systolic (congestive) and diastolic (congestive) heart failure; J96.01 Acute respiratory failure with hypoxia; J96.02 Acute respiratory failure with hypercapnia; N17.9 Acute kidney failure, unspecified; K92.2 Gastrointestinal hemorrhage, unspecified; I42.9 Cardiomyopathy, unspecified; I25.10 Atherosclerotic heart disease of native coronary artery without angina pectoris; Z51.5 Encounter for palliative care; E89.0 Postprocedural hypothyroidism; D53.9 Nutritional anemia, unspecified; N18.9 Chronic kidney disease, unspecified; D69.6 Thrombocytopenia, unspecified; I48.0 Paroxysmal atrial fibrillation; R53.1 Weakness; R57.0 Cardiogenic shock; I95.9 Hypotension, unspecified; Z96.1 Presence of intraocular lens; Z79.82 Long term (current) use of aspirin; Z79.52 Long term (current) use of systemic steroids; Z79.899 Other long term (current) drug therapy; Z79.890 Hormone replacement therapy; Z88.0 Allergy status to penicillin; Z88.1 Allergy status to other antibiotic agents; Z95.0 Presence of cardiac pacemaker; Z90.89 Acquired absence of other organs; Z95.1 Presence of aortocoronary bypass graft; Z90.710 Acquired absence of both cervix and uterus; Z90.49 Acquired absence of other specified parts of digestive tract; Z98.890 Other specified postprocedural states; Z95.5 Presence of coronary angioplasty implant and graft; Z98.42 Cataract extraction status, left eye; Z98.41 Cataract extraction status, right eye; Z85.850 Personal history of malignant neoplasm of thyroid
CPT/HCPCS: 36415; 36416; 36600; 51702; 70450; 70490; 71045; 80048; 80053; 81001; 82550; 82553; 82805; 83605; 83735; 83880; 84145; 84439; 84443; 84481; 84484; 85025; 87040; 93005; 93306; 94002; 94003; 94760; 96365; J0171; J1650; J1720; J1940; J2250; J2270; J3010; J3480; J7030; J7050; J7999